=== PATIENT | male | born 1950 | race Caucasian/White ===

== ENCOUNTER 2017-05-08 01:04 | Inpatient (IN) | payer MEDICARE ==
[~2017-05-08] VITALS: Ht 170.2 cm; Wt 72.0 kg
[2017-05-08] VITALS (11 sets, daily range): BP systolic 110–159; BP diastolic 61–95; PULSE 78–100; RESP 16–24; TEMP 97.4–99.9; O2SAT 93–99
[~2017-05-08 01:04] MED LIST: CORTIS10A AU; CYCL-36 PO; KETO10 PO; PERC10TA26 PO; TYLE3 PO
[2017-05-08] MEDS ORDERED: metroNIDAZOLE 500 MG INJ 100 ML IV ONE (01:15)
[2017-05-08] MEDS ORDERED: MORPHINE SULFATE 4 MG/ML INJ IV ONE (01:15)
[2017-05-08] MEDS ORDERED: SODIUM CHLORIDE 0.9% FLUSH 10 ML FLUSH IV FLUSH PRN ×2 (01:15→03:15)
[2017-05-08] MEDS ORDERED: cefTRIAXone INJ 2,000 MG in SODIUM CHLORIDE 0.9% INJ 100 ML IV ONE (01:15)
[2017-05-08] MEDS ORDERED: ONDANSETRON HCL 4 MG/2 ML VIAL IV PUSH ONE (01:15)
[2017-05-08] MEDS ORDERED: DIPHTH/TETANUS/ACEL PERTUSSIS (BOOSTER) 0.5 ML VIAL/PFS IM ONE (01:15)
--- NOTE | 2017-05-08 01:30 | PD ---
HPI . Dog bite to R forearm Chief Complaint: Bite or Sting Time Seen by Provider: 01:10 Travel History International Travel<30 days: No Contact w/Intl Traveler<30days: No Traveled to known affect area: No History of Present Illness HPI This patient is a 67 year old male who presents with a dog bite to the right forearm that occurred approximately 12 hours before presentation to [facility]. The patient is a poor historian. The patient said he was trying to break up a dog fight and save his dog when he was bitten by the other dog. The dog was taken by animal control. His family member subsequently called EMS later that evening because the patient fell and hurt the right arm that was previously bitten. The patient denies any fevers or chills but admits to nausea. He said his arm is very painful to touch and has limited mobility. He has taken Oxycodone for the pain. His only other medical problems include chronic back pain for which he takes Oxycodone. He is allergic to penicillin. PFSH Past Medical History Diminished Hearing: No Musculoskeletal: Yes (CHRONIC BACK PAIN) Social History Alcohol Use: No Tobacco Use: Yes (1 PPD) Substance Use: No Allergies-Medications (Allergen,Severity, Reaction): Coded Allergies: penicillin G (Unverified Allergy, Mild, RASH, 05/08/17) Reported Meds & Prescriptions Reported Meds & Active Scripts Active Reported Tamsulosin (Tamsulosin HCl) 0.4 Mg Cap 0.4 Mg PO BID Xanax (Alprazolam) 1 Mg Tab 1 Mg PO Q6H PRN Morphine ER (Morphine Sulfate) 30 Mg Tab 30 Mg PO Q8H PRN Percocet (Oxycodone-Acetaminophen) 10-325 mg Tab 1 Tab PO Q6H PRN Review of Systems Except as stated in HPI: all other systems reviewed are Neg General / Constitutional: No: Fever, Chills Cardiovascular: No: Chest Pain or Discomfort Respiratory: No: Cough, Shortness of Breath Gastrointestinal: Positive: Nausea, No: Vomiting, Diarrhea, Abdominal Pain Skin: Positive Lesions (Puncture wounds to R anterior forearm/hand ) Physical Exam Narrative GENERAL: This patient is a 67 year old male examined at bedside. He is alert and oriented x3 and is in no acute distress. SKIN: Distal right extremity erythema and edema extending from mid forearm to fingertips. Several small puncture wounds on the anterior distal right forearm draining serosanguineous fluid, mild purple bruising around puncture wounds. Several tattoos on anterior chest, forearms. No axillary lymphadenopathy HEAD: Atraumatic. Normocephalic. EYES: Pupils equal and round. ENT: No nasal bleeding or discharge. Mucous membranes pink and moist. NECK: Trachea midline. CARDIOVASCULAR: Regular rate and rhythm. No murmurs or extra beats RESPIRATORY: No accessory muscle use. Clear to auscultation. GASTROINTESTINAL: Abdomen soft, non-tender, nondistended. MUSCULOSKELETAL: No obvious deformities. Limited R finger and wrist ROM, due to swelling and pain. NEUROLOGICAL: Awake and alert. No obvious cranial nerve deficits. Motor grossly within normal limits. Normal speech. PSYCHIATRIC: Appropriate mood and affect; insight and judgment normal. Data Data Last Documented VS Vital Signs Date Time Temp Pulse Resp B/P Pulse Ox O2 Delivery O2 Flow Rate FiO2 05/08/17 02:00 16 05/08/17 01:45 97 126/70 96 Room Air 05/08/17 01:11 99.7 Orders Iv Access Insert/Monitor (05/08/17 01:10) Wound Care (05/08/17 01:10) Complete Blood Count With Diff (05/08/17 01:10) Basic Metabolic Panel (Bmp) (05/08/17 01:10) Prothrombin Time / Inr (Pt) (05/08/17 01:10) Act Partial Throm Time (Ptt) (05/08/17 01:10) Siwk-Xtt-Suaxgf (Booster) Inj (Boostrix (05/08/17 01:15) Sodium Chloride 0.9% Flush (Ns Flush) (05/08/17 01:15) Morphine Inj (Morphine Inj) (05/08/17 01:15) Ondansetron Inj (Zofran Inj) (05/08/17 01:15) Ceftriaxone Inj (Rocephin Inj) (05/08/17 01:15) Metronidazole 500 Mg Inj (Flagyl 500 Mg (05/08/17 01:15) Tetanus/Diphtheria Tox Adult (Tetanus/Di (05/08/17 02:15) Forearm (2vws) (05/08/17 02:03) Hand, Complete (Fmo8yui) (05/08/17 02:03) Consult Hand Surgery (05/08/17 ) Admit Order (Ed Use Only) (05/08/17 03:07) Labs Laboratory Tests Test 05/08/17 01:20 White Blood Count 11.7 TH/MM3 Red Blood Count 4.17 MIL/MM3 Hemoglobin 12.2 GM/DL Hematocrit 36.3 % Mean Corpuscular Volume 87.0 FL Mean Corpuscular Hemoglobin 29.2 PG Mean Corpuscular Hemoglobin 33.6 % Concent Red Cell Distribution Width 14.7 % Platelet Count 220 TH/MM3 Mean Platelet Volume 7.5 FL Neutrophils (%) (Auto) 81.9 % Lymphocytes (%) (Auto) 9.1 % Monocytes (%) (Auto) 5.5 % Eosinophils (%) (Auto) 2.3 % Basophils (%) (Auto) 1.2 % Neutrophils # (Auto) 9.6 TH/MM3 Lymphocytes # (Auto) 1.1 TH/MM3 Monocytes # (Auto) 0.6 TH/MM3 Eosinophils # (Auto) 0.3 TH/MM3 Basophils # (Auto) 0.1 TH/MM3 CBC Comment DIFF FINAL Differential Comment Prothrombin Time 11.6 SEC Prothromb Time International 1.0 RATIO Ratio Activated Partial 27.3 SEC Thromboplast Time Sodium Level 137 MEQ/L Potassium Level 3.8 MEQ/L Chloride Level 107 MEQ/L Carbon Dioxide Level 22.6 MEQ/L Anion Gap 7 MEQ/L Blood Urea Nitrogen 16 MG/DL Creatinine 1.30 MG/DL Estimat Glomerular Filtration 55 ML/MIN Rate Random Glucose 124 MG/DL Calcium Level 8.5 MG/DL MDM Medical Decision Making Medical Screen Exam Complete: Yes Emergency Medical Condition: Yes Differential Diagnosis Cellulitis, osteomyelitis, fracture Narrative Course This is a 67 year old gentleman who presented 12 hours after a dog bite to the right distal forearm and dorsal surface of the hand. He is complaining of pain and swelling. X-ray ordered and Tdap and antibiotic coverage for pasteurella given. He was also given Zofran for nausea and Morphine for pain. CBC & BMP Diagram 05/08/17 01:20 X-rays of the hand and forearm shows some soft tissue swelling as well as some air in the soft tissue on the dorsum of the hand. There is no fracture. There is no foreign body. The x-rays were independently viewed by me. Sepsis Criteria SIRS Criteria (2 or more): Heart rate over 90 Sepsis Criteria (SIRS+source): Infect source susp/known Physician Communication Physician Communication Dr. Eric will admit for IV ABX. Hand surgery will be consulted. Diagnosis Primary Impression: Cellulitis Qualified Code: L03.113 - Cellulitis of right upper extremity Additional Impression: Dog bite of hand Qualified Code: S61.451A - Dog bite of right hand, initial encounter Admitting Information Admitting Physician Requests: Admit Condition: Stable Sabrina Davidson MD May 08, 2017 01:30
[2017-05-08 01:37] LABS: AUTOMATED NEUTROPHIL # 9.6 TH/MM3 (1.8-7.7); BASOPHIL # 0.1 TH/MM3 (0-0.2); BASOPHIL % 1.2 % (0.0-2.0); EOSINOPHIL # 0.3 TH/MM3 (0-0.4); EOSINOPHIL % 2.3 % (0.0-4.0); HEMATOCRIT 36.3 % (39.0-51.0); HEMO FLAGS DIFF FINAL; LYMPH % 9.1 % (9.0-44.0); LYMPHOCYTE # 1.1 TH/MM3 (1.0-4.8); MEAN CORPUSCULAR HEMOGLOBIN 29.2 PG (27.0-34.0); MEAN CORPUSCULAR HGB CONC 33.6 % (32.0-36.0); MONO % 5.5 % (0.0-8.0); NEUT % 81.9 % (16.0-70.0); PLATELET COUNT 220 TH/MM3 (150-450); RED BLOOD COUNT 4.17 MIL/MM3 (4.50-5.90); RED CELL DISTRIBUTION WIDTH 14.7 % (11.6-17.2); WHITE BLOOD COUNT 11.7 TH/MM3 (4.0-11.0)
[2017-05-08 01:43] LABS: POTASSIUM 3.8 MEQ/L (3.5-5.1)
[2017-05-08 01:46] LABS: BICARBONATE 22.6 MEQ/L (21.0-32.0)
[2017-05-08 01:47] LABS: APTT (PATIENT) 27.3 SEC (24.3-30.1); PROTHROMBIN TIME - PATIENT 11.6 SEC (9.8-11.6)
[2017-05-08] MEDS ORDERED: XANA1TAB2 PO (01:51)
[2017-05-08] MEDS ORDERED: MORP1TAB25 PO (01:51)
[2017-05-08] MEDS ORDERED: PERC10TA27 PO (01:51)
[2017-05-08] MEDS ORDERED: TAMS0.4C4 PO (01:52)
[2017-05-08] MEDS ORDERED: TETANUS/DIPHTHERIA TOXOID ADULT 0.5 ML VIAL IM ONE (02:15)
--- NOTE | 2017-05-08 02:52 | RADRPT ---
EXAM DATE/TIME: 05/08/2017 02:12 [facility] COMPARISON: No previous studies available for comparison. INDICATIONS : Dog bit to posterior surface of right hand today MEDICAL HISTORY : None. SURGICAL HISTORY : None. ENCOUNTER: Initial ACUITY: 1 day PAIN SCORE: 10/10 LOCATION: Right posterior hand FINDINGS: Three view examination of the right hand demonstrates no dislocation, or fracture. Marked soft tiss ue swelling along the dorsum of the hand with a few dots of soft tissue air characteristic of penetra ting trauma. The carpal bones appear intact with scattered, benign appearing osseous cysts. The inte rphalangeal and metacarpophalangeal joints are intact. Bony mineralization is normal. CONCLUSION: 1. Soft tissue swelling along the dorsum of the hand with regional air density characteristic of pene trating trauma. 2. No associated fracture. Navi Castillo MD on May 08, 2017 at 2:48 Board Certified Radiologist. This report was verified electronically.
--- NOTE | 2017-05-08 02:53 | RADRPT ---
EXAM DATE/TIME: 05/08/2017 02:18 [facility] COMPARISON: No previous studies available for comparison. INDICATIONS : Dog bit to posterior surface of right distal forearm today MEDICAL HISTORY : None. SURGICAL HISTORY : None. ENCOUNTER: Initial ACUITY: 1 day PAIN SCORE: 10/10 LOCATION: Right posterior distal forearm FINDINGS: Two view examination of the right forearm demonstrates no evidence of fracture or dislocation. Bony mineralization is normal. The soft tissue structures are intact. CONCLUSION: No fracture. Navi Castillo MD on May 08, 2017 at 2:51 Board Certified Radiologist. This report was verified electronically.
[2017-05-08] MEDS ORDERED: LACTULOSE SYRUP 20 GM/30 ML CUP PO PRN (03:15)
[2017-05-08] MEDS ORDERED: ONDANSETRON HCL 4 MG/2 ML VIAL IVP PRN (03:15)
[2017-05-08] MEDS ORDERED: ACETAMINOPHEN 325 MG TAB PO PRN (03:15)
[2017-05-08] MEDS ORDERED: BISACODYL 10 MG SUPP RECTAL PRN (03:15)
[2017-05-08] MEDS ORDERED: MAGNESIUM HYDROXIDE SUSP 30 ML CUP PO PRN (03:15)
[2017-05-08] MEDS ORDERED: SENNOSIDES 8.6 MG TAB PO PRN (03:15)
[2017-05-08] MEDS: SODIUM CHLOR 0.9% 1000 ML INJ 1,000 ML IV SCH ×3 (04:03→23:41)
[2017-05-08] MEDS: DOXYCYCLINE INJ 100 MG in SODIUM CHLORIDE 0.9% INJ 100 ML IV SCH ×2 (04:04→16:31)
[2017-05-08] MEDS: MORPHINE SULFATE 4 MG/ML INJ IV PRN ×4 (04:13→23:43)
--- NOTE | 2017-05-08 09:01 | HHI.HP ---
[facility] Burton Gar MD Admission Diagnosis celllulitis, right hand. dog bite, right hand Diagnoses: (1) Cellulitis Diagnosis: Principal (2) Dog bite of hand Diagnosis: Principal Chief Complaint: Dog bite Travel History International Travel<30 Days: No Contact w/Intl Traveler <30 Da: No Traveled to Known Affected Are: No History of Present Illness Written by Hudson Eastman, acting as scribe for Dr. Benjamin on 05/08/17 at 08: 48. 67 year-old male with known history of chronic pain who presented to hospital because of a dog bite. Patient states that approximately 11 AM yesterday morning there was a fight between his dog which is a [place]/Tinsley/ Boxer and his sister's dog which is a pit bull/mastiff mix. He tried to break up a fight and he got bit on his right hand and forearm. The patient proceeded through the day and he went and picked up his prescriptions in [place] and then decided to come to the emergency department for evaluation. Patient had evaluation done emergency department it was recommended the patient be admitted for further evaluation management. The patient is allergic to penicillin which he states he breaks out in a rash. Patient was given Rocephin in emergency department. Hand specialist has been consulted for further recommendations. Patient denies any fever, chills, exudate or drainage. Patient is able to move all of his fingers and use his hand, however very painful Review of Systems Musculoskeletal: COMPLAINS OF: Stiffness (right hand) Except as stated in HPI: all other systems reviewed are Neg Past Family Social History Past Medical History Chronic back pain Past Surgical History Right rotator cuff surgery Reported Medications Reported Meds & Active Scripts Active Reported Tamsulosin (Tamsulosin HCl) 0.4 Mg Cap 0.4 Mg PO BID Xanax (Alprazolam) 1 Mg Tab 1 Mg PO Q6H PRN Morphine ER (Morphine Sulfate) 30 Mg Tab 30 Mg PO Q8H PRN Percocet (Oxycodone-Acetaminophen) 10-325 mg Tab 1 Tab PO Q6H PRN Allergies: Coded Allergies: penicillin G (Unverified Allergy, Mild, RASH, 05/08/17) Family History Reviewed is significant for mother in her 80s from unknown cancer, father at age 69 from unknown cancer. Patient denies any family history of heart disease diabetes, seizures, stroke Social History Patient smokes a pack a cigarettes a day since he was 14 years old. Denies any alcohol or illicit drugs Physical Exam Vital Signs Vital Signs Date Time Temp Pulse Resp B/P Pulse Ox O2 Delivery O2 Flow Rate FiO2 05/08/17 08:00 98.1 86 20 159/95 99 05/08/17 07:07 85 18 05/08/17 06:00 84 16 126/72 98 Nasal Cannula 2 05/08/17 05:30 86 16 140/70 97 Nasal Cannula 2 05/08/17 04:30 88 16 110/61 94 Nasal Cannula 2 05/08/17 04:25 88 18 05/08/17 04:20 18 05/08/17 03:30 90 16 117/73 93 Room Air 05/08/17 02:30 92 18 151/77 95 Room Air 05/08/17 02:00 16 05/08/17 01:45 97 18 126/70 96 Room Air 05/08/17 01:18 100 18 05/08/17 01:11 99.7 100 18 136/76 98 Physical Exam GENERAL: Well-developed, well-nourished, in no acute distress. alert and orientated HEENT: Head is normocephalic without any lesions or masses noted. Facial features are symmetric. Eyes: Pupils equal round reactive to light. Extraocular muscles are intact. Conjunctivae were clear. Oropharyngeal: Pharynx without any erythema edema. Tongue is midline without deviation. Buccal mucosa is moist without any masses or lesions NECK: Supple without any masses. Trachea midline no deviation. No JVD, no bruits are appreciated CARDIAC: Regular rhythm, regular rate. S1/S2 are heard. No murmurs gallops or rubs. LUNGS: Clear to auscultation bilaterally. No wheeze, rhonchi or rales. No use of accessory muscles on inspiration or expiration. ABDOMEN: Soft, nontender. Nondistended. Bowel sounds heard in all 4 quadrants. No organomegaly or masses. Negative rebound, negative guarding EXTREMITIES: No edema, pulses are equal bilaterally. No cyanosis or clubbing NEUROLOGY: Mood and affect appear appropriate. Cranial nerves II through XII grossly intact. Muscle strength 5/5 in upper and lower extremities bilaterally. Deep tendon reflexes are 2+ in upper and lower extremities bilaterally. RIGHT HAND: Patient does have multiple puncture dickey noted on the anterior surface of his hand. There is one laceration measuring 1 cm that does have a deep pocket approximately half a centimeter deep. Right anterior forearm just above the wrist shows multiple excoriations and small lacerations without any signs of exudates. There is swelling of the right hand and mild cellulitis noted over the anterior surface of the hand and distal forearm Laboratory Laboratory Tests Test 05/08/17 01:20 White Blood Count 11.7 Red Blood Count 4.17 Hemoglobin 12.2 Hematocrit 36.3 Mean Corpuscular Volume 87.0 Mean Corpuscular Hemoglobin 29.2 Mean Corpuscular Hemoglobin 33.6 Concent Red Cell Distribution Width 14.7 Platelet Count 220 Mean Platelet Volume 7.5 Neutrophils (%) (Auto) 81.9 Lymphocytes (%) (Auto) 9.1 Monocytes (%) (Auto) 5.5 Eosinophils (%) (Auto) 2.3 Basophils (%) (Auto) 1.2 Neutrophils # (Auto) 9.6 Lymphocytes # (Auto) 1.1 Monocytes # (Auto) 0.6 Eosinophils # (Auto) 0.3 Basophils # (Auto) 0.1 CBC Comment DIFF FINAL Differential Comment Prothrombin Time 11.6 Prothromb Time International 1.0 Ratio Activated Partial 27.3 Thromboplast Time Sodium Level 137 Potassium Level 3.8 Chloride Level 107 Carbon Dioxide Level 22.6 Anion Gap 7 Blood Urea Nitrogen 16 Creatinine 1.30 Estimat Glomerular Filtration 55 Rate Random Glucose 124 Calcium Level 8.5 Result Diagram: 05/08/1711905/08/17119 Imaging Last Impressions Radius/Ulna X-Ray 05/08/17202 Signed Impressions: Service Date/Time: Monday, May 08, 2017 02:18 - CONCLUSION: No fracture. Navi Castillo MD Hand X-Ray 05/08/17202 Signed Impressions: Service Date/Time: Monday, May 08, 2017 02:12 - CONCLUSION: 1. Soft tissue swelling along the dorsum of the hand with regional air density characteristic of penetrating trauma. 2. No associated fracture. Navi Castillo MD Assessment and Plan Assessment and Plan Dog bite of the right hand with cellulitis X-ray shows soft tissue swelling at along the dorsal surface of the hand with regional air density characteristics of penetrating trauma Patient given Rocephin in the emergency department. Patient will be started on Cipro and continued on doxycycline Hand specialist has been consulted for further recommendations, discussed with him who recommended continuation of antibiotics to include Cipro, elevation, cultures were taken Continue pain control Chronic pain Home medications will be continued DVT prevention Low risk, early ambulation This note was transcribed by russ [Hudson Eastman]. I, Dr. Guillermo Benjamin personally performed the history, physical exam, and medical decision making; and confirmed the accuracy of the information in the transcribed note. Authenticated by Dr. Guillermo Benjamin on 05/08/17 at 0850. Code Status No code Discussed Condition With Patient, hand specialist Dr. Fernandes Physician Certification 2 Midnight Certification Type: Admission for Inpatient Services Order for Inpatient Services The services are ordered in accordance with Medicare regulations or non- Medicare payer requirements, as applicable. In the case of services not specified as inpatient-only, they are appropriately provided as inpatient services in accordance with the 2-midnight benchmark. Estimated LOS (days): 2 days is the estimated time the patient will need to remain in the hospital, assuming treatment plan goals are met and no additional complications. Post-Hospital Plan: Home Problem Qualifiers (1) Cellulitis: Qualified Code: L03.113 - Cellulitis of right upper extremity (2) Dog bite of hand: Qualified Code: S61.451A - Dog bite of right hand, initial encounter Hudson Eastman May 08, 2017 09:01 Guillermo Benjamin MD May 08, 2017 09:04
--- NOTE | 2017-05-08 09:25 | MB ---
cc: MOLLY URRUTIA III, M.D. DATE OF CONSULTATION: 05/08/2017 HISTORY OF PRESENT ILLNESS The patient is a 67-year-old [id number] male who presented with a dog bite to the right hand and wrist which occurred almost 24 hours ago. He came in late last night to the emergency room in [place]. He stated he was trying to break up a fight between his dog and his sister's dog and the dog bit him. PAST MEDICAL HISTORY Chronic back pain. ALLERGIES PENICILLIN. MEDICATIONS 1. Oxycodone. 2. Morphine ER. 3. Xanax. 4. Tamsulosin. PAST SURGICAL HISTORY Right rotator cuff surgery. SOCIAL HISTORY He smokes one pack per day. FAMILY HISTORY Noncontributory. REVIEW OF SYSTEMS The patient is not complaining of headaches, blurry or double vision. He is not complaining of any coughing, wheezing or shortness of breath. He is not complaining of any chest pain or palpitations. He is not complaining of any nausea, vomiting or abdominal pain. He is not complaining of any spine, neck or back pain. He is not complaining of any burning, frequency or urgency with urination. He is not complaining of any night sweats, fevers or chills. He is not complaining of any skin lesions, rashes or eruptions. IMAGING X-rays of the right hand and forearm were performed in the emergency room. . Right hand soft tissue swelling along the dorsum of the hand with regional air density characteristic of penetrate trauma. No associated fracture. No right forearm fracture. LABORATORY STUDIES White blood cell count of 11.7, hemoglobin 12.2 gm/dl, platelet count 220,000. PHYSICAL EXAMINATION GENERAL: The patient is well-developed, well-nourished, in no apparent distress. VITAL SIGNS: Temperature is not recorded. Heart rate 85, respiratory rate 18, blood pressure 126/72, pulse ox 98% on room air. RIGHT UPPER EXTREMITY: His right hand is lying in his lap, very dependent and wrapped with Kerlix which is removed. There are multiple puncture wounds, the dorsal most of which is draining and this was probed. He has full active range of motion of all his fingers. There is edema on the dorsum of his hand. There is no subcutaneous emphysema. There is no tracking. There is no erythema or edema or tenderness anywhere along the wrist or forearm. Radial pulse is palpable. Capillary refill is less than 2 seconds in all fingertips. There is no epitrochlear or axillary adenopathy. There is an antecubital fossa IV which is promptly removed by his nurse on the floor and placed into his opposite arm. There is no subcutaneous emphysema or tracking. He is neurovascularly intact throughout. All musculotendinous units appear intact. IMPRESSION Dog bite right hand and wrist. PLAN/RECOMMENDATIONS Recommendation is for strong IV antibiotic coverage and strict elevation of his hand along with packing changes as well as wound care. There is no indication for surgical intervention at this point. I discussed this with the patient's nurse and the PA. MD ARIAS Trejo III/JACQUE /8:34 AM /9:08 AM
[2017-05-08] MEDS: metroNIDAZOLE 500 MG INJ 100 ML IV SCH ×2 (10:15→20:59)
[2017-05-08] MEDS: CIPROFLOXACIN 400 MG PREMIX 200 ML IV SCH ×2 (10:15→23:41)
[2017-05-08] MEDS: DOCUSATE SODIUM 50 MG/SENNA 8.6 MG TAB PO SCH ×2 (10:16→20:59)
[2017-05-08] MEDS: SODIUM CHLORIDE 0.9% FLUSH 10 ML FLUSH IV FLUSH SCH ×2 (10:16→20:59)
[2017-05-08] MEDS: NICOTINE 21 MG/24 HR PATCH T-DERMAL SCH (11:51)
[2017-05-08] MEDS: ACETAMINOPHEN/HYDROcodone 325 MG/5 MG TAB PO PRN ×2 (11:54→21:00)
--- NOTE | 2017-05-08 16:26 | HHI.PR ---
Objective Vital Signs Date Time Temp Pulse Resp B/P Pulse Ox O2 Delivery O2 Flow Rate FiO2 05/08/17 16:00 99.9 78 20 126/86 99 05/08/17 12:54 18 05/08/17 12:00 98.4 86 20 155/87 96 05/08/17 10:30 15 05/08/17 08:00 98.1 86 20 159/95 99 05/08/17 07:07 85 18 05/08/17 06:00 84 16 126/72 98 Nasal Cannula 2 05/08/17 05:30 86 16 140/70 97 Nasal Cannula 2 05/08/17 04:30 88 16 110/61 94 Nasal Cannula 2 05/08/17 04:25 88 18 05/08/17 03:30 90 16 117/73 93 Room Air 05/08/17 02:30 92 18 151/77 95 Room Air 05/08/17 02:00 16 05/08/17 01:45 97 18 126/70 96 Room Air 05/08/17 01:18 100 18 05/08/17 01:11 99.7 100 18 136/76 98 I/O 05/07/17 05/07/17 05/07/17 05/08/17 05/08/17 05/08/17 06:59 14:59 22:59 06:59 14:59 22:59 Intake Total 1570 ml Output Total 400 ml Balance -400 ml 1570 ml Intake Oral 1570 ml Output Urine Total 400 ml # Voids 2 Result Diagram: 05/08/17 0120 05/08/17 0120 Objective Remarks right hand erythema better still edematous but only serosanguenous drainage no induration no purulence Assessment and Plan Problem List: (1) Cellulitis Status: Acute Plan: continue abx/elevation/packing changes (2) Dog bite of hand Status: Acute Problem Qualifiers (1) Cellulitis: Qualified Code: L03.113 - Cellulitis of right upper extremity (2) Dog bite of hand: Qualified Code: S61.451A - Dog bite of right hand, initial encounter Rodger Fernandes III, MD May 08, 2017 16:25
[2017-05-09 01:41] VITALS: BP 159/91; PULSE 77; RESP 16; TEMP 97.3; O2SAT 93
[2017-05-09] MEDS: metroNIDAZOLE 500 MG INJ 100 ML IV SCH ×2 (03:00→11:25)
[2017-05-09] MEDS: DOXYCYCLINE INJ 100 MG in SODIUM CHLORIDE 0.9% INJ 100 ML IV SCH (04:00)
[2017-05-09 07:12] LABS: AUTOMATED NEUTROPHIL # 8.6 TH/MM3 (1.8-7.7); BASOPHIL % 0.4 % (0.0-2.0); EOSINOPHIL # 0.2 TH/MM3 (0-0.4); EOSINOPHIL % 2.2 % (0.0-4.0); HEMATOCRIT 39.6 % (39.0-51.0); LYMPH % 10.6 % (9.0-44.0); LYMPHOCYTE # 1.2 TH/MM3 (1.0-4.8); MEAN CELL VOLUME 88.3 FL (80.0-100.0); MEAN CORPUSCULAR HEMOGLOBIN 28.8 PG (27.0-34.0); MEAN CORPUSCULAR HGB CONC 32.6 % (32.0-36.0); MONO % 8.1 % (0.0-8.0); NEUT % 78.7 % (16.0-70.0); PLATELET COUNT 205 TH/MM3 (150-450); RED BLOOD COUNT 4.48 MIL/MM3 (4.50-5.90); RED CELL DISTRIBUTION WIDTH 14.7 % (11.6-17.2); WHITE BLOOD COUNT 10.9 TH/MM3 (4.0-11.0)
[2017-05-09 07:15] LABS: HEMO FLAGS DIFF FINAL
[2017-05-09 07:23] LABS: CHLORIDE 109 MEQ/L (98-107); POTASSIUM 3.7 MEQ/L (3.5-5.1); SODIUM (NA) 141 MEQ/L (136-145)
[2017-05-09 07:32] LABS: ANION GAP 7 MEQ/L (5-15); BICARBONATE 25.4 MEQ/L (21.0-32.0)
[2017-05-09 07:33] LABS: BLOOD UREA NITROGEN 12 MG/DL (7-18)
[2017-05-09 07:35] LABS: ALT (GPT) 10 U/L (12-78)
[2017-05-09 07:36] LABS: AST (GOT) 7 U/L (15-37); GLOMERULAR FILTRATION RATE 93 ML/MIN (>89)
[2017-05-09 07:37] LABS: TOTAL BILIRUBIN ADULT 0.6 MG/DL (0.2-1.0)
[2017-05-09 07:38] LABS: ALKALINE PHOSPHATASE 61 U/L (45-117)
[2017-05-09 08:21] VITALS: BP 144/82; PULSE 80; RESP 19; TEMP 99; O2SAT 94
[2017-05-09] MEDS: MORPHINE SULFATE 4 MG/ML INJ IV PRN (08:36)
[2017-05-09] MEDS: NICOTINE 21 MG/24 HR PATCH T-DERMAL SCH (08:37)
[2017-05-09] MEDS: DOCUSATE SODIUM 50 MG/SENNA 8.6 MG TAB PO SCH (08:37)
[2017-05-09] MEDS: CIPROFLOXACIN 400 MG PREMIX 200 ML IV SCH (08:38)
[2017-05-09] MEDS: SODIUM CHLORIDE 0.9% FLUSH 10 ML FLUSH IV FLUSH SCH (08:38)
[2017-05-09 08:41] VITALS: RESP 18
[2017-05-09] MEDS ORDERED: REMOVE OLD PATCH T-DERMAL SCH (09:00)
[2017-05-09] MEDS: SODIUM CHLOR 0.9% 1000 ML INJ 1,000 ML IV SCH (09:04)
--- NOTE | 2017-05-09 10:59 | HHI.PR ---
Subjective Remarks The patient states that he still has right hand pain however it is 3 out of 10 in improved since yesterday and he also feels that the swelling has improved. The patch was changed this morning. The greatest amount of pain occurs with packing of the wound. The patient denies fever or chills. He does complain of not sleeping well and requests a sleeping aid. Objective Vitals Vital Signs Date Time Temp Pulse Resp B/P Pulse Ox O2 Delivery O2 Flow Rate FiO2 05/09/17 08:41 18 05/09/17 08:21 99.0 80 19 144/82 94 05/09/17 04:52 05/09/17 01:41 97.3 77 16 159/91 93 05/08/17 21:28 97.4 89 24 138/94 95 05/08/17 16:00 99.9 78 20 126/86 99 05/08/17 12:54 18 05/08/17 12:00 98.4 86 20 155/87 96 I/O 05/08/17 05/08/17 05/08/17 05/09/17 05/09/17 05/09/17 07:00 15:00 23:00 07:00 15:00 23:00 Intake Total 1570 ml 341 ml Output Total 400 ml 1700 ml Balance -400 ml 1570 ml 341 ml -1700 ml Intake Oral 1570 ml IV Total 341 ml Output Urine Total 400 ml 1700 ml # Voids 2 Result Diagram: 05/09/1762105/09/17621 Objective Remarks GENERAL: Well-nourished, well-developed very pleasant lean male patient. SKIN: Warm and dry. HEAD: Normocephalic. EYES: No scleral icterus. No injection or drainage. NECK: Supple, trachea midline. No JVD or lymphadenopathy. CARDIOVASCULAR: Regular rate and rhythm without murmurs, gallops, or rubs. RESPIRATORY: Breath sounds equal bilaterally. No accessory muscle use. GASTROINTESTINAL: Abdomen soft, non-tender, nondistended. EXTREMITIES: The right hand and wrist is bandaged, he has some swelling of the left hand, he is able to move all fingers. Bandage is not removed as it was just changed this morning. NEUROLOGICAL: Awake, alert, and oriented x 3. Non-focal. A/P Problem List: (1) Cellulitis ICD Code: L03.90 Status: Acute (2) Dog bite of hand ICD Code: S61.459A Status: Acute Assessment and Plan Dog bite of the right hand with cellulitis X-ray shows soft tissue swelling at along the dorsal surface of the hand with regional air density characteristics of penetrating trauma -Status post I&D in the emergency department, hand surgery Dr. Fernandes following - continue bandage changes, elevation, antibiotics Continue Cipro and continued on doxycycline Gram stain showing gram-negative rods, will follow culture results Continue pain control Chronic pain Home medications continued DVT prevention Low risk, early ambulation Problem Qualifiers (1) Cellulitis: Qualified Code: L03.113 - Cellulitis of right upper extremity (2) Dog bite of hand: Qualified Code: S61.451A - Dog bite of right hand, initial encounter Jaaj Pichardo MD May 09, 2017 10:59
[2017-05-09] MEDS: ACETAMINOPHEN/HYDROcodone 325 MG/5 MG TAB PO PRN (11:35)
[2017-05-09] MEDS ORDERED: LACTCHW3 CHEW (11:39)
[2017-05-09] MEDS ORDERED: DOXY100C PO (11:39)
[2017-05-09] MEDS ORDERED: CIPR-9 PO (11:39)
== END 2017-05-09 12:55 | disposition home or self-care (01) | DRG 603 ==
LOC: PHED 01:04 → PHEDA 03:08 → PH3B 07:34
PROVIDERS: ADMIT Family Medicine; ATTEND Family Medicine
DX: L03.113 Cellulitis of right upper limb (principal); F17.210 Nicotine dependence, cigarettes, uncomplicated; G89.29 Other chronic pain; S61.451A Open bite of right hand, initial encounter; W54.0XXA Bitten by dog, initial encounter; G47.00 Insomnia, unspecified
CPT/HCPCS: 73090; 73130; 80048; 80053; 85025; 85610; 85730; 86403; 87070; 87205; 90471; 90714; 96365; 96367; 96375; J0696; J0744; J2270; J2405; J7030

== ENCOUNTER 2018-02-01 20:58 | Inpatient (IN) | payer MEDICARE ==
[~2018-02-01] VITALS: Ht 170.2 cm; Wt 72.9 kg
[~2018-02-01 20:58] MED LIST changes: +CIPR-9 PO; -CORTIS10A AU; -CYCL-36 PO; +DOXY100C PO; -KETO10 PO; +LACTCHW3 CHEW; +MORP1TAB25 PO; -PERC10TA26 PO; +PERC10TA27 PO; +TAMS0.4C4 PO; -TYLE3 PO; +XANA1TAB2 PO
[2018-02-01 21:00] VITALS: BP 139/79; PULSE 78; RESP 14; TEMP 98.9; O2SAT 98
[2018-02-01] MEDS ORDERED: XANA1TAB2 PO (21:11)
--- NOTE | 2018-02-01 21:28 | PD ---
HPI Chief Complaint: Laceration/Skin Injury Time Seen by Provider: 21:17 Travel History International Travel<30 days: No Contact w/Intl Traveler<30days: No Traveled to known affect area: No History of Present Illness HPI 68-year-old male complaining of pain swelling and discharge on the left foot. Patient states that symptoms started several days ago. Patient denies any injury to left foot. Patient states that he is redness swelling and no discharge is worse today. Patient is not a diabetic. Patient denies any fever chills. Patient son Percocet and morphine for chronic pain. Patient states that he is up-to-date with TD booster. Patient states the pain and burning pain sharp pain localized to the distal aspect of the left foot. Patient denies any pain radiation. On a scale of 1-10 the pain is an 8. PFSH Past Medical History Diminished Hearing: No Genitourinary: Yes (DIFFICULTY URINATING) Musculoskeletal: Yes (CHRONIC BACK/LEG PAIN) Influenza Vaccination: No Social History Alcohol Use: No (DENIES) Tobacco Use: Yes (1/2 PPD) Substance Use: No Allergies-Medications (Allergen,Severity, Reaction): Coded Allergies: penicillin G (Unverified Allergy, Mild, RASH, 05/08/17) Reported Meds & Prescriptions Reported Meds & Active Scripts Active Reported Xanax (Alprazolam) 1 Mg Tab 1 Mg PO Q8H Tamsulosin (Tamsulosin HCl) 0.4 Mg Cap 0.4 Mg PO BID Morphine ER (Morphine Sulfate) 30 Mg Tab 30 Mg PO Q8H PRN Percocet (Oxycodone-Acetaminophen) 10-325 mg Tab 1 Tab PO Q6H PRN Review of Systems General / Constitutional: No: Fever Eyes: No: Visual changes HENT: No: Headaches Cardiovascular: No: Chest Pain or Discomfort Respiratory: No: Shortness of Breath Gastrointestinal: No: Abdominal Pain Genitourinary: No: Dysuria Musculoskeletal: Positive: Pain Skin: No Rash Neurologic: No: Weakness Psychiatric: No: Depression Endocrine: No: Polydipsia Hematologic/Lymphatic: No: Easy Bruising Physical Exam Narrative GENERAL: Well-nourished, well-developed patient. SKIN: Focused skin assessment warm/dry. HEAD: Normocephalic. EYES: No scleral icterus. No injection or drainage. NECK: Supple, trachea midline. No JVD or lymphadenopathy. CARDIOVASCULAR: Regular rate and rhythm without murmurs, gallops, or rubs. RESPIRATORY: Breath sounds equal bilaterally. No accessory muscle use. GASTROINTESTINAL: Abdomen soft, non-tender, nondistended. MUSCULOSKELETAL: No cyanosis, or edema. BACK: Nontender without obvious deformity. No CVA tenderness. Patient has open wound on the plantar aspect of the left second toe with serosanguineous discharge. Patient has redness swelling tenderness distal aspect of the left foot with extent into the midfoot area. Data Data Last Documented VS Vital Signs Date Time Temp Pulse Resp B/P (MAP) Pulse Ox O2 Delivery O2 Flow Rate FiO2 02/01/18 22:10 14 97 Room Air 02/01/18 21:30 76 123/78 (93) 02/01/18 21:00 98.9 Orders Orders Complete Blood Count With Diff (02/01/18 21:17) Comprehensive Metabolic Panel (02/01/18 21:17) Prothrombin Time / Inr (Pt) (02/01/18 21:17) Act Partial Throm Time (Ptt) (02/01/18 21:17) Blood Culture (02/01/18 21:17) Urinalysis - C+S If Indicated (02/01/18 21:17) Wound Culture And Gram Stain (02/01/18 21:17) Chest, Single Ap (02/01/18 21:17) Iv Access Insert/Monitor (02/01/18 21:17) Ecg Monitoring (02/01/18 21:17) Oximetry (02/01/18 21:17) Foot, Complete ([id number]) (02/01/18 21:17) Sodium Chlor 0.9% 1000 Ml Inj (Ns 1000 M (02/01/18 21:30) Vancomycin Inj (Vancomycin Inj) (02/01/18 21:30) Labs Laboratory Tests Test 02/01/18 21:20 White Blood Count 7.4 TH/MM3 Red Blood Count 4.35 MIL/MM3 Hemoglobin 12.7 GM/DL Hematocrit 38.6 % Mean Corpuscular Volume 88.7 FL Mean Corpuscular Hemoglobin 29.1 PG Mean Corpuscular Hemoglobin Concent 32.8 % Red Cell Distribution Width 14.8 % Platelet Count 361 TH/MM3 Mean Platelet Volume 7.7 FL Neutrophils (%) (Auto) 80.7 % Lymphocytes (%) (Auto) 11.4 % Monocytes (%) (Auto) 5.8 % Eosinophils (%) (Auto) 1.6 % Basophils (%) (Auto) 0.5 % Neutrophils # (Auto) 6.1 TH/MM3 Lymphocytes # (Auto) 0.8 TH/MM3 Monocytes # (Auto) 0.4 TH/MM3 Eosinophils # (Auto) 0.1 TH/MM3 Basophils # (Auto) 0.0 TH/MM3 CBC Comment DIFF FINAL Differential Comment Prothrombin Time 11.4 SEC Prothromb Time International Ratio 1.1 RATIO Activated Partial Thromboplast Time 26.5 SEC Blood Urea Nitrogen 11 MG/DL Creatinine 0.72 MG/DL Random Glucose 112 MG/DL Total Protein 8.0 GM/DL Albumin 3.2 GM/DL Calcium Level 9.1 MG/DL Alkaline Phosphatase 82 U/L Aspartate Amino Transf (AST/SGOT) 9 U/L Alanine Aminotransferase (ALT/SGPT) 13 U/L Total Bilirubin 0.4 MG/DL Sodium Level 140 MEQ/L Potassium Level 3.7 MEQ/L Chloride Level 105 MEQ/L Carbon Dioxide Level 26.8 MEQ/L Anion Gap 8 MEQ/L Estimat Glomerular Filtration Rate 108 ML/MIN MDM Medical Decision Making Medical Screen Exam Complete: Yes Emergency Medical Condition: Yes Interpretation(s) Last Impressions Foot X-Ray 02/01/182116 Signed Impressions: Service Date/Time: Thursday, February 01, 2018 21:40 - CONCLUSION: No acute bony findings Martínez Doe MD Chest X-Ray 02/01/182116 Signed Impressions: Service Date/Time: Thursday, February 01, 2018 21:40 - CONCLUSION: No acute disease. Martínez Doe MD 23:16 PM. CBC WBC 7.4. Hemoglobin 12.7 hematocrit 30.6. 80 neutrophil. CMP within normal limits. Differential Diagnosis Differential diagnosis including cellulitis, osteomyelitis. Narrative Course 68-year-old male with infected wound left second toe and redness swelling tenderness distal aspect the left foot. Normal saline solution 100 cc an hour. Vancomycin 1 g IV. Diagnosis Primary Impression: Cellulitis of left foot Admitting Information Admitting Physician Requests: Admit Rafael Koch MD February 01, 2018 21:28
[2018-02-01 21:30] VITALS: BP 123/78; PULSE 76; RESP 14; O2SAT 97
[2018-02-01] MEDS ORDERED: VANCOMYCIN INJ 1,000 MG in SODIUM CHLOR 0.9% 250 ML INJ 250 ML IV ONE (21:30)
[2018-02-01 21:53] LABS: AUTOMATED NEUTROPHIL # 6.1 TH/MM3 (1.8-7.7); BASOPHIL % 0.5 % (0.0-2.0); EOSINOPHIL # 0.1 TH/MM3 (0-0.4); EOSINOPHIL % 1.6 % (0.0-4.0); HEMATOCRIT 38.6 % (39.0-51.0); HEMOGLOBIN 12.7 GM/DL (13.0-17.0); LYMPH % 11.4 % (9.0-44.0); LYMPHOCYTE # 0.8 TH/MM3 (1.0-4.8); MEAN CELL VOLUME 88.7 FL (80.0-100.0); MEAN CORPUSCULAR HEMOGLOBIN 29.1 PG (27.0-34.0); MEAN CORPUSCULAR HGB CONC 32.8 % (32.0-36.0); MEAN PLATELET VOLUME 7.7 FL (7.0-11.0); MONO % 5.8 % (0.0-8.0); MONOCYTE # 0.4 TH/MM3 (0-0.9); NEUT % 80.7 % (16.0-70.0); PLATELET COUNT 361 TH/MM3 (150-450); RED BLOOD COUNT 4.35 MIL/MM3 (4.50-5.90); RED CELL DISTRIBUTION WIDTH 14.8 % (11.6-17.2); WHITE BLOOD COUNT 7.4 TH/MM3 (4.0-11.0)
[2018-02-01] MEDS: SODIUM CHLOR 0.9% 1000 ML INJ 1,000 ML IV SCH (21:55)
[2018-02-01 22:02] LABS: CHLORIDE 105 MEQ/L (98-107); SODIUM (NA) 140 MEQ/L (136-145)
[2018-02-01 22:05] LABS: ALBUMIN 3.2 GM/DL (3.4-5.0); BICARBONATE 26.8 MEQ/L (21.0-32.0); BLOOD UREA NITROGEN 11 MG/DL (7-18); CALCIUM 9.1 MG/DL (8.5-10.1); GLUCOSE,RANDOM 112 MG/DL (74-106)
[2018-02-01 22:07] LABS: INTERNATIONAL NORMALIZED RATIO 1.1 RATIO; PROTHROMBIN TIME - PATIENT 11.4 SEC (9.8-11.6)
[2018-02-01 22:08] LABS: ALT (GPT) 13 U/L (12-78); AST (GOT) 9 U/L (15-37); CREATININE 0.72 MG/DL (0.60-1.30); GLOMERULAR FILTRATION RATE 108 ML/MIN (>89)
[2018-02-01 22:10] VITALS: RESP 14; O2SAT 97
[2018-02-01 22:10] LABS: TOTAL BILIRUBIN ADULT 0.4 MG/DL (0.2-1.0)
[2018-02-01 22:11] LABS: ALKALINE PHOSPHATASE 82 U/L (45-117)
--- NOTE | 2018-02-01 22:13 | RADRPT ---
EXAM DATE/TIME: 02/01/2018 21:40 [facility] COMPARISON: No previous studies available for comparison. INDICATIONS : Shortness of breath. MEDICAL HISTORY : Diabetic. SURGICAL HISTORY : None. ENCOUNTER: Initial ACUITY: 1 day PAIN SCORE: 0/10 LOCATION: Bilateral chest FINDINGS: A single view of the chest demonstrates the lungs to be symmetrically aerated without evidence of mas s, infiltrate or effusion. The cardiomediastinal contours are unremarkable. Osseous structures are intact. CONCLUSION: No acute disease. Martínez Doe MD on February 01, 2018 at 22:10 Board Certified Radiologist. This report was verified electronically.
--- NOTE | 2018-02-01 22:25 | RADRPT ---
EXAM DATE/TIME: 02/01/2018 21:40 [facility] COMPARISON: No previous studies available for comparison. INDICATIONS : Open wound on the plantar aspect of the left second toe. No known trauma. MEDICAL HISTORY : Diabetic. SURGICAL HISTORY : None. ENCOUNTER: Initial ACUITY: 3 days PAIN SCORE: 5/10 LOCATION: Left foot. FINDINGS: There is arthritic change most notably in the first MTP joint. No evidence of fracture, dislocation o r bony destruction. Mild soft tissue swelling involving the second toe. CONCLUSION: No acute bony findings Martínez Doe MD on February 01, 2018 at 22:21 Board Certified Radiologist. This report was verified electronically.
[2018-02-01 23:00] VITALS: BP 119/73; PULSE 70; RESP 14; O2SAT 97
[2018-02-01] MEDS ORDERED: Vancomycin Consult Pharmacy 1 EA OTHER SCH (23:15)
[2018-02-01] MEDS ORDERED: MAGNESIUM HYDROXIDE SUSP 30 ML CUP PO PRN (23:15)
[2018-02-01] MEDS ORDERED: BISACODYL 10 MG SUPP RECTAL PRN (23:15)
[2018-02-01] MEDS ORDERED: SODIUM CHLORIDE 0.9% FLUSH 10 ML FLUSH IV FLUSH PRN (23:15)
[2018-02-01] MEDS ORDERED: NALOXONE HCL 0.4 MG/ML AMP IV PUSH PRN (23:15)
[2018-02-01] MEDS ORDERED: ACETAMINOPHEN 325 MG TAB PO PRN (23:15)
[2018-02-01] MEDS ORDERED: ONDANSETRON HCL 4 MG/2 ML VIAL IVP PRN (23:15)
[2018-02-01] MEDS ORDERED: GLUCAGON 1 MG/ML VIAL OTHER PRN (23:15)
[2018-02-01] MEDS ORDERED: SENNOSIDES 8.6 MG TAB PO PRN (23:15)
[2018-02-01] MEDS ORDERED: DEXTROSE 50% IN WATER 50 ML VIAL(D50) IV PUSH PRN (23:15)
[2018-02-01] MEDS ORDERED: LACTULOSE SYRUP 20 GM/30 ML CUP PO PRN (23:15)
[2018-02-02] VITALS (7 sets, daily range): BP systolic 118–144; BP diastolic 59–76; PULSE 66–80; RESP 14–18; TEMP 96.1–100.2; O2SAT 95–97
[2018-02-02 02:36] LABS: BILIRUBIN, URINE NEG (NEG); BLOOD, URINE MOD (NEG); GLUCOSE,URINE NEG (NEG); KETONE, URINE 15 mg/dL (NEG); NITRITE,URINE NEG (NEG); URINE COLOR YELLOW (YELLW/STRAW); URINE LEUKOCYTE ESTERASE MOD (NEG)
[2018-02-02] MEDS ORDERED: HYDROmorphone HCL PF 1 MG/ML VIAL IV PUSH ONE (02:45)
[2018-02-02 02:55] LABS: MUCUS URINE FEW /lpf (OCC)
[2018-02-02 02:56] LABS: BACTERIA, URINE MOD /hpf; RBC, URINE 0-3 /hpf (0-3); SQUAMOUS EPITHELIAL CELL URINE 0-5 /hpf (0-5)
[2018-02-02] MEDS ORDERED: HYDROmorphone HCL PF 0.5 MG/0.5 ML SYRINGE IV PUSH ONE (03:00)
[2018-02-02] MEDS: SODIUM CHLOR 0.9% 1000 ML INJ 1,000 ML IV SCH (06:07)
[2018-02-02 06:50] LABS: AUTOMATED NEUTROPHIL # 4.6 TH/MM3 (1.8-7.7); BASOPHIL % 0.4 % (0.0-2.0); CALCIUM 8.5 MG/DL (8.5-10.1); EOSINOPHIL # 0.3 TH/MM3 (0-0.4); EOSINOPHIL % 4.5 % (0.0-4.0); HEMATOCRIT 32.8 % (39.0-51.0); HEMOGLOBIN 10.8 GM/DL (13.0-17.0); LYMPH % 19.7 % (9.0-44.0); LYMPHOCYTE # 1.4 TH/MM3 (1.0-4.8); MEAN CORPUSCULAR HEMOGLOBIN 29.3 PG (27.0-34.0); MEAN CORPUSCULAR HGB CONC 32.9 % (32.0-36.0); MEAN PLATELET VOLUME 7.5 FL (7.0-11.0); MONO % 9.1 % (0.0-8.0); MONOCYTE # 0.6 TH/MM3 (0-0.9); NEUT % 66.3 % (16.0-70.0); PLATELET COUNT 274 TH/MM3 (150-450); RED BLOOD COUNT 3.69 MIL/MM3 (4.50-5.90); RED CELL DISTRIBUTION WIDTH 14.1 % (11.6-17.2); WHITE BLOOD COUNT 6.9 TH/MM3 (4.0-11.0)
[2018-02-02 06:51] LABS: BICARBONATE 29.2 MEQ/L (21.0-32.0)
[2018-02-02 06:54] LABS: CREATININE 0.72 MG/DL (0.60-1.30)
[2018-02-02] MEDS ORDERED: INSULIN ASPART SUPPLEMENTAL SCALE SQ SCH (08:00)
[2018-02-02] MEDS: VANCOMYCIN INJ 1,000 MG in SODIUM CHLOR 0.9% 250 ML INJ 250 ML IV SCH ×2 (08:40→21:36)
[2018-02-02] MEDS: SODIUM CHLORIDE 0.9% FLUSH 10 ML FLUSH IV FLUSH SCH ×2 (08:40→21:36)
[2018-02-02] MEDS: DOCUSATE SODIUM 50 MG/SENNA 8.6 MG TAB PO SCH ×2 (08:41→21:35)
[2018-02-02] MEDS ORDERED: oxyCODONE/ACETAMINOPHEN 7.5 MG/325 MG TAB PO ONE (09:30)
[2018-02-02] MEDS ORDERED: oxyCODONE/ACETAMINOPHEN 7.5 MG/325 MG TAB PO PRN (09:30)
[2018-02-02] MEDS: oxyCODONE/ACETAMINOPHEN 7.5 MG/325 MG TAB PO PRN ×2 (09:58→17:45)
[2018-02-02] MEDS: BACITRACIN TOP OINT 15 GM TUBE TOPICAL SCH (11:00)
--- NOTE | 2018-02-02 11:46 | HHI.HP ---
[facility] Burton Gar MD Admission Diagnosis Left foot cellulitis Diagnoses: Chief Complaint: Left foot pain Travel History International Travel<30 Days: No Contact w/Intl Traveler <30 Da: No Traveled to Known Affected Are: No History of Present Illness Patient is a 68-year-old gentleman with minimal past medical history who reports 6 days discomfort and pain to the left foot. He notes there is redness and swelling on the second and third toe interdigital space and difficulty with putting pressure on the foot. Pain is 10 out of 10 despite his home regimen of morphine and Percocet which he takes for back pain. Pain was improved with IV Dilaudid. Patient has not had any fevers or chills. Patient did not have any previous antibiotics. The foot is quite boggy and swelling has been severe although improved with elevation overnight. X-rays were completed and there does not appear to be any foreign body. Patient reports no previous surgical treatment of the foot and ankle. Patient been admitted for IV antibiotics and for further evaluation and treatment Review of Systems Constitutional: DENIES: Diaphoretic episodes, Fatigue, Fever, Weight gain, Weight loss, Chills, Dizziness, Change in appetite, Night Sweats Endocrine: DENIES: Heat/cold intolerance, Polydipsia, Polyuria, Polyphagia Eyes: DENIES: Blurred vision, Diplopia, Eye inflammation, Eye pain, Vision loss , Photosensitivity, Double Vision Ears, nose, mouth, throat: DENIES: Tinnitus, Hearing loss, Vertigo, Nasal discharge, Oral lesions, Throat pain, Hoarseness, Ear Pain, Running Nose, Epistaxis, Sinus Pain, Toothache, Odynophagia Respiratory: DENIES: Apneas, Cough, Snoring, Wheezing, Hemoptysis, Sputum production, Shortness of breath Cardiovascular: DENIES: Chest pain, Palpitations, Syncope, Dyspnea on Exertion , PND, Lower Extremity Edema, Orthopnea, Claudication Gastrointestinal: DENIES: Abdominal pain, Black stools, Bloody stools, Constipation, Diarrhea, Nausea, Vomiting, Difficulty Swallowing, Anorexia Genitourinary: DENIES: Sexual dysfunction, Urinary frequency, Urinary incontinence, Urgency, Hematuria, Dysuria, Nocturia, Penile Discharge, Testicular Pain, Testicular Swelling Musculoskeletal: COMPLAINS OF: Joint pain, Back pain Integumentary: DENIES: Abnormal pigmentation, Nail changes, Pruritus, Rash Hematologic/lymphatic: DENIES: Bruising, Lymphadenopathy Neurologic: DENIES: Abnormal gait, Headache, Localized weakness, Paresthesias, Seizures, Speech Problems, Tremor, Poor Balance Psychiatric: DENIES: Anxiety, Confusion, Mood changes, Depression, Hallucinations, Agitation, Suicidal Ideation, Homicidal Ideation, Delusions Except as stated in HPI: all other systems reviewed are Neg Past Family Social History Past Medical History Chronic back pain on chronic narcotics Urinary troubles Past Surgical History Denies Reported Medications Reviewed in the EMR, nothing new Allergies: Coded Allergies: penicillin G (Unverified Allergy, Mild, RASH, 05/08/17) Active Ordered Medications Reviewed in the EMR Family History Mother and father both from malignancies (no further details) Social History Lives with his family, denies alcohol currently, smokes a half a pack a day Physical Exam Vital Signs Vital Signs Date Time Temp Pulse Resp B/P (MAP) Pulse Ox O2 Delivery O2 Flow Rate FiO2 02/02/18 10:58 17 02/02/18 09:37 98.5 80 18 119/59 (79) 95 02/02/18 00:40 96.1 69 18 137/70 (92) 96 02/02/18 00:10 02/02/18 00:00 68 14 118/68 (85) 96 Room Air 02/01/18 23:00 70 14 119/73 (88) 97 Room Air 02/01/18 22:10 14 97 Room Air 02/01/18 21:30 76 14 123/78 (93) 97 Room Air 02/01/18 21:00 98.9 78 14 139/79 (99) 98 Physical Exam GENERAL: This is a well-nourished, well-developed patient, in no apparent distress. SKIN: Left foot edema improves, erythema improved There is still some sloughing and bogginess up under the second and third toes with denuded skin HEAD: Atraumatic. Normocephalic. No temporal or scalp tenderness. EYES: Pupils equal round and reactive. Extraocular motions intact. No scleral icterus. No injection or drainage. ENT: Nose without bleeding, purulent drainage or septal hematoma. Throat without erythema, tonsillar hypertrophy or exudate. Uvula midline. Airway patent. NECK: Trachea midline. No JVD or lymphadenopathy. Supple, nontender, no meningeal signs. CARDIOVASCULAR: Regular rate and rhythm without murmurs, gallops, or rubs. RESPIRATORY: Clear to auscultation. Breath sounds equal bilaterally. No wheezes , rales, or rhonchi. GASTROINTESTINAL: Abdomen soft, non-tender, nondistended. No hepato-splenomegaly , or palpable masses. No guarding. MUSCULOSKELETAL: Extremities without clubbing, cyanosis, or edema. No joint tenderness, effusion, or edema noted. No calf tenderness. Negative Homans sign bilaterally. NEUROLOGICAL: Awake and alert. Cranial nerves II through XII intact. Motor and sensory grossly within normal limits. Five out of 5 muscle strength in all muscle groups. Normal speech. Laboratory Laboratory Tests Test 02/01/18 21:20 02/02/18 02:19 02/02/18 05:55 White Blood Count 7.4 6.9 Red Blood Count 4.35 3.69 Hemoglobin 12.7 10.8 Hematocrit 38.6 32.8 Mean Corpuscular Volume 88.7 89.0 Mean Corpuscular Hemoglobin 29.1 29.3 Mean Corpuscular Hemoglobin Concent 32.8 32.9 Red Cell Distribution Width 14.8 14.1 Platelet Count 361 274 Mean Platelet Volume 7.7 7.5 Neutrophils (%) (Auto) 80.7 66.3 Lymphocytes (%) (Auto) 11.4 19.7 Monocytes (%) (Auto) 5.8 9.1 Eosinophils (%) (Auto) 1.6 4.5 Basophils (%) (Auto) 0.5 0.4 Neutrophils # (Auto) 6.1 4.6 Lymphocytes # (Auto) 0.8 1.4 Monocytes # (Auto) 0.4 0.6 Eosinophils # (Auto) 0.1 0.3 Basophils # (Auto) 0.0 0.0 CBC Comment DIFF FINAL DIFF FINAL Differential Comment Prothrombin Time 11.4 Prothromb Time International Ratio 1.1 Activated Partial Thromboplast Time 26.5 Blood Urea Nitrogen 11 10 Creatinine 0.72 0.72 Random Glucose 112 113 Total Protein 8.0 Albumin 3.2 Calcium Level 9.1 8.5 Alkaline Phosphatase 82 Aspartate Amino Transf (AST/SGOT) 9 Alanine Aminotransferase (ALT/SGPT) 13 Total Bilirubin 0.4 Sodium Level 140 142 Potassium Level 3.7 3.7 Chloride Level 105 108 Carbon Dioxide Level 26.8 29.2 Anion Gap 8 5 Estimat Glomerular Filtration Rate 108 108 Urine Color YELLOW Urine Turbidity CLOUDY Urine pH 6.0 Urine Specific [place] 1.015 Urine Protein NEG Urine Glucose (UA) NEG Urine Ketones 15 Urine Occult Blood MOD Urine Nitrite NEG Urine Bilirubin NEG Urine Urobilinogen 0.2 Urine Leukocyte Esterase MOD Urine RBC 0-3 Urine WBC 20-24 Urine Squamous Epithelial Cells 0-5 Urine Bacteria MOD Urine Mucus FEW Microscopic Urinalysis Comment CULTURE INDICATED Date/Time Source Procedure Growth Status 02/01/18 21:20 Blood Peripheral Aerobic Blood Culture - Preliminary NO GROWTH IN 1 DAY Resulted 02/01/18 21:20 Blood Peripheral Anaerobic Blood Culture - Preliminary NO GROWTH IN 1 DAY Resulted 02/02/18 02:19 Urine Clean Catch Urine Culture Pending Received 02/01/18 21:35 Wound Foot Gram Stain Pending Received 02/01/18 21:35 Wound Foot Wound Culture Pending Received Result Diagram: 02/02/18 0555 02/02/18 0555 Imaging Last Impressions Foot X-Ray 02/01/182116 Signed Impressions: Service Date/Time: Thursday, February 01, 2018 21:40 - CONCLUSION: No acute bony findings Martínez Doe MD Chest X-Ray 02/01/182116 Signed Impressions: Service Date/Time: Thursday, February 01, 2018 21:40 - CONCLUSION: No acute disease. MD William Kennedyi VTE Risk Assessment Caprini VTE Risk Assessment: Mod/High Risk (score >= 2) Caprini Risk Assessment Model Point Value = 1 Point Value = 2 Point Value = 3 Point Value = 5 Age 41-60 Minor surgery BMI > 25 kg/m2 Swollen legs Varicose veins or History of unexplained or recurrent spontaneous Oral contraceptives or hormone replacement Sepsis (< 1 month) Serious lung disease, including pneumonia (< 1 month) Abnormal pulmonary function Acute myocardial infarction Congestive heart failure (< 1 month) History of inflammatory bowel disease Medical patient at bed rest Age 61-74 Arthroscopic surgery Major open surgery (> 45 min) Laparoscopic surgery (> 45 min) Malignancy Confined to bed (> 72 hours) Immobilizing plaster cast Central venous access Age >= 75 History of VTE Family history of VTE Factor V Leiden Prothrombin [id number] Lupus anticoagulant Anticardiolipin antibodies Elevated serum homocysteine Heparin-induced thrombocytopenia Other congenital or acquired thrombophilia Stroke (< 1 month) Elective arthroplasty Hip, pelvis, or leg fracture Acute spinal cord injury (< 1 month) Prophylaxis Regimen Total Risk Factor Score Risk Level Prophylaxis Regimen 0-1 Low Early ambulation 2 Moderate Order ONE of the following: *Sequential Compression Device (SCD) *Heparin 5000 units SQ BID 3-4 Higher Order ONE of the following medications: *Heparin 5000 units SQ TID *Enoxaparin/Lovenox 40 mg SQ daily (WT < 150 kg, CrCl > 30 mL/min) *Enoxaparin/Lovenox 30 mg SQ daily (WT < 150 kg, CrCl > 10-29 mL/min) *Enoxaparin/Lovenox 30 mg SQ BID (WT < 150 kg, CrCl > 30 mL/min) AND/OR *Sequential Compression Device (SCD) 5 or more Highest Order ONE of the following medications: *Heparin 5000 units SQ TID (Preferred with Epidurals) *Enoxaparin/Lovenox 40 mg SQ daily (WT < 150 kg, CrCl > 30 mL/min) *Enoxaparin/Lovenox 30 mg SQ daily (WT < 150 kg, CrCl > 10-29 mL/min) *Enoxaparin/Lovenox 30 mg SQ BID (WT < 150 kg, CrCl > 30 mL/min) AND *Sequential Compression Device (SCD) Assessment and Plan Problem List: (1) Cellulitis of left foot ICD Code: L03.116 - Cellulitis of left lower limb Status: Acute Plan: Left second and third toe infection with interdigital tinea Continue with IV vancomycin for now and antifungal at discharge Culture sent today after cleaning Podiatry consult pending Monitor clinically (2) Anemia ICD Code: D64.9 - Anemia, unspecified Plan: Etiology unclear but suspicious for neuropathy Check B12 level and iron levels, workup in progress Physician Certification 2 Midnight Certification Type: Admission for Inpatient Services Order for Inpatient Services The services are ordered in accordance with Medicare regulations or non- Medicare payer requirements, as applicable. In the case of services not specified as inpatient-only, they are appropriately provided as inpatient services in accordance with the 2-midnight benchmark. Estimated LOS (days): 3 3 days is the estimated time the patient will need to remain in the hospital, assuming treatment plan goals are met and no additional complications. Post-Hospital Plan: Sosa Kyle MD February 02, 2018 11:46
[2018-02-02 12:30] LABS: C-REACTIVE PROTEIN 9.76 MG/DL (0.00-0.30)
[2018-02-02] MEDS: ALPRAZolam 1 MG TAB PO SCH ×2 (14:07→21:35)
--- NOTE | 2018-02-02 14:40 | MB ---
cc: Lucas Rob DPM DATE: 02/02/2018 REASON FOR CONSULTATION: Left foot abscess, cellulitis involving second digit and forefoot. HISTORY OF PRESENT ILLNESS: This is a pleasant 68-year-old male, in the past 6 days had pain and discomfort of his left foot and he continued to develop significant pain, swelling, and redness of the second and third interdigital space. The patient had significant pain, however, has chronic low back pain. He was taking Percocet. The patient was admitted, IV antibiotics were given. He states he has some improvement. He denies any obvious incident or injury. PAST MEDICAL HISTORY: Chronic back pain, urinary issues nonspecific. PAST SURGICAL HISTORY: None listed. No note of metal in the body. OUTPATIENT MEDICATIONS: Reported outpatient medications are reviewed, pain medications. ALLERGIES: PENICILLIN G - MILD RASH. FAMILY HISTORY: Mother and father of malignancies. No further details. SOCIAL HISTORY: Lives with his family. Denies alcohol. Smokes half pack a day. INPATIENT MEDICATIONS: Reviewed. The patient is receiving vancomycin. PHYSICAL EXAMINATION: VITAL SIGNS: Temperature 100.2, pulse rate 72, respiratory rate 18, blood pressure 136/73, saturating 96% on room air. This is a 70 kilogram, alert and oriented male seen at bedside exhibiting nonlabored respirations. He is verbal, appropriate. He is able to move the upper and lower extremities. Left lower extremity focussed. There is a purulent draining fibrotic abscess ulcer of the plantar aspect of the second digit. There is interdigital maceration and redness that involves the forefoot. There is pain upon pressure to the area. There is no obvious necrosis, but there is rather impressive edema and erythema of near entire second digit. Pedal pulses are palpable. Sensation is intact. To deep pressure appears to be slightly diminished to light touch. LABORATORY DATA: White blood cell 6.9, hemoglobin and hematocrit 10 and 32, platelet count is 274. Sodium 142, potassium 3.7, chloride 108, CO2 29.2, BUN is 10, creatinine 0.72, random glucose is 113. C-reactive protein is 9.7. PT is 11.4, INR 1. Imaging findings: Foot x-ray: Arthritic changes of the first MPJ. No acute bony findings. No mention of gas or osteomyelitis. MRI ordered. Microbial findings: Gram stain ordered. Aerobic blood culture: Negative growth 1 day. ASSESSMENT AND PLAN: Left severe forefoot infection, possible interspace, rule out osteomyelitis deep abscess along the flexor tendon of the second digit. MRI ordered. Continue IV antibiotics. I will advise pending the MRI. The patient may need incision, drainage, debridement versus amputation of the digit. The patient wishes for digit salvage type efforts. I will follow along within the next 24 hours and advise. Thank you for this consultation. OMAR Johnson/TL , 02:03 PM , 02:39 PM
[2018-02-02 15:10] LABS: % SATURATION IRON PROFILE 13.3 % (20-50); IRON (FE) 41 MCG/DL (65-175); TOTAL IRON BINDING CAPACITY 308 MCG/DL (250-450)
[2018-02-02] MEDS ORDERED: GADODIAMIDE PF 287 MG/ML 5 ML VIAL (for RAD MRI) IV PUSH ONE (16:22)
[2018-02-02] MEDS: TAMSULOSIN HCL 0.4 MG CAP PO SCH (21:35)
[2018-02-02] MEDS: MORPHINE SULFATE 30 MG CONTROLLED RELEASE TAB PO PRN (21:37)
--- NOTE | 2018-02-02 23:23 | RADRPT ---
EXAM DATE/TIME: 02/02/2018 15:53 [facility] COMPARISON: FOOT LEFT COMPLETE ([id number]), February 01, 2018, 21:40. INDICATIONS : Abscess. Second and third toe wound by MTPJ. CONTRAST: 14 cc Omniscan (gadodiamide) IV MEDICAL HISTORY : None. SURGICAL HISTORY : None. ENCOUNTER: Initial ACUITY: 1 week PAIN SCORE: 10/10 LOCATION: Left foot, second and third toe. TECHNIQUE: Multiplanar, multisequence MRI examination was performed without contrast and after the intravenous a dministration of gadolinium. FINDINGS: There is prominent edema and cellulitic change involving the second and third toes, mainly in the annamaria ntar aspect of the toes and more significantly involving the second toe than the third. There appears to be an open wound involving the plantar surface of the second toe just proximal to the level of th e proximal interphalangeal joint. There is sinuous diminished contrast-enhancement extending into the deep subcutaneous tissues from this region which is likely devitalized tissue. No definite evidence of drainable abscess. The bony elements are grossly normal in signal without enhancement to suggest s uperimposed osteomyelitis at present. CONCLUSION: Soft tissue wound and infection involving the second and third toes without definite evidence of unde rlying osteomyelitis. Martínez Doe MD on February 02, 2018 at 23:17 Board Certified Radiologist. This report was verified electronically.
[2018-02-03] VITALS: BP 125/68; PULSE 63; RESP 18; TEMP 96.6; O2SAT 95
[2018-02-03] MEDS: oxyCODONE/ACETAMINOPHEN 7.5 MG/325 MG TAB PO PRN ×3 (05:50→18:44)
[2018-02-03] MEDS: ALPRAZolam 1 MG TAB PO SCH ×3 (05:50→21:02)
[2018-02-03 06:18] LABS: AUTOMATED NEUTROPHIL # 4.7 TH/MM3 (1.8-7.7); BASOPHIL % 0.6 % (0.0-2.0); EOSINOPHIL # 0.3 TH/MM3 (0-0.4); EOSINOPHIL % 4.8 % (0.0-4.0); HEMATOCRIT 36.6 % (39.0-51.0); HEMOGLOBIN 11.7 GM/DL (13.0-17.0); LYMPH % 14.9 % (9.0-44.0); MEAN CELL VOLUME 89.4 FL (80.0-100.0); MEAN CORPUSCULAR HEMOGLOBIN 28.6 PG (27.0-34.0); MEAN PLATELET VOLUME 7.3 FL (7.0-11.0); MONO % 8.6 % (0.0-8.0); MONOCYTE # 0.6 TH/MM3 (0-0.9); NEUT % 71.1 % (16.0-70.0); PLATELET COUNT 302 TH/MM3 (150-450); RED BLOOD COUNT 4.09 MIL/MM3 (4.50-5.90); RED CELL DISTRIBUTION WIDTH 14.3 % (11.6-17.2); WHITE BLOOD COUNT 6.6 TH/MM3 (4.0-11.0)
[2018-02-03 08:00] VITALS: BP 131/71; PULSE 65; RESP 19; TEMP 97.7; O2SAT 95
[2018-02-03] MEDS: TAMSULOSIN HCL 0.4 MG CAP PO SCH ×2 (08:27→21:00)
[2018-02-03] MEDS: DOCUSATE SODIUM 50 MG/SENNA 8.6 MG TAB PO SCH ×2 (08:27→21:00)
[2018-02-03] MEDS: VANCOMYCIN INJ 1,000 MG in SODIUM CHLOR 0.9% 250 ML INJ 250 ML IV SCH (08:27)
[2018-02-03] MEDS: BACITRACIN TOP OINT 15 GM TUBE TOPICAL SCH (08:28)
[2018-02-03] MEDS: SODIUM CHLORIDE 0.9% FLUSH 10 ML FLUSH IV FLUSH SCH ×2 (08:28→21:00)
[2018-02-03] MEDS ORDERED: PHARMACY ORDERED LAB ONE (08:45)
[2018-02-03] MEDS ORDERED: PNEUMOCOCCAL POLYVALENT INJ 25 MCG/0.5 ML SYR IM ONE (10:00)
--- NOTE | 2018-02-03 11:29 | HHI.PR ---
Subjective Remarks Patient seen and evaluated today. Doing better. Pain is minimal. Care plan discussed with podiatry yesterday. No evidence of ostial imaging Objective Vitals Vital Signs Date Time Temp Pulse Resp B/P (MAP) Pulse Ox O2 Delivery O2 Flow Rate FiO2 02/03/18 08:00 97.7 65 19 131/71 (91) 95 02/03/18 06:50 20 02/03/18 00:00 96.6 63 18 125/68 (87) 95 02/02/18 20:00 98.2 66 18 144/76 (98) 97 02/02/18 16:52 96.6 78 14 138/72 (94) 97 02/02/18 14:23 98.2 02/02/18 12:50 100.2 72 18 136/73 (94) 96 I/O 02/02/18 02/02/18 02/02/18 02/03/18 02/03/18 02/03/18 07:00 15:00 23:00 07:00 15:00 23:00 Intake Total 698 ml 590 ml 1320 ml 120 ml Output Total 700 ml Balance 698 ml 590 ml 1320 ml -700 ml 120 ml Intake Oral 1320 ml 120 ml IV Total 698 ml 590 ml Output Urine Total 700 ml # Voids 7 # Bowel Movements 0 1 Result Diagram: 02/03/18 0535 02/02/18 0555 Imaging Last Impressions Foot MRI 02/02/18 0000 Signed Impressions: Service Date/Time: Friday, February 02, 2018 15:53 - CONCLUSION: Soft tissue wound and infection involving the second and third toes without definite evidence of underlying osteomyelitis. Martínez Doe MD Foot X-Ray 02/01/182116 Signed Impressions: Service Date/Time: Thursday, February 01, 2018 21:40 - CONCLUSION: No acute bony findings Martínez Doe MD Chest X-Ray 02/01/182116 Signed Impressions: Service Date/Time: Thursday, February 01, 2018 21:40 - CONCLUSION: No acute disease. Martínez Doe MD Objective Remarks Left foot dorsum is inflamed, decreased erythema and edema between the second and third digits GENERAL: This is a well-nourished, well-developed patient, in no apparent distress. CARDIOVASCULAR: Regular rate and rhythm without murmurs, gallops, or rubs. RESPIRATORY: Clear to auscultation. Breath sounds equal bilaterally. No wheezes , rales, or rhonchi. GASTROINTESTINAL: Abdomen soft, non-tender, nondistended. Normal active bowel sounds MUSCULOSKELETAL: Extremities without clubbing, cyanosis, or edema. NEURO: Alert & Oriented x4 to person, place, time, situation. Moves all ext x4 A/P Problem List: (1) Cellulitis of left foot ICD Code: L03.116 - Cellulitis of left lower limb Status: Acute Plan: Left second and third toe infection with interdigital tinea Continue with IV vancomycin for now and antifungal at discharge Cultures pending Podiatry consult appreciated Monitor clinically (2) Anemia ICD Code: D64.9 - Anemia, unspecified Plan: Etiology unclear but suspicious for neuropathy Iron deficiency anemia will need outpatient evaluation Discharge Planning Pending infectious process clinical improvement Sosa Bedoya MD February 03, 2018 11:29
[2018-02-03] MEDS ORDERED: MULTIVITAMINS/IRON/MINERALS CHEWABLE TAB CHEW SCH (11:30)
[2018-02-03 12:00] VITALS: BP 162/78; PULSE 70; RESP 20; TEMP 99; O2SAT 96
--- NOTE | 2018-02-03 12:58 | PD.POD ---
Subjective Pain score: 3 Remarks Some improvement noted of the left foot Past Med/Surg/Social History Social History Smoking Status: Light Tobacco Smoker Objective Vital Signs Vital Signs Date Time Temp Pulse Resp B/P (MAP) Pulse Ox O2 Delivery O2 Flow Rate FiO2 02/03/18 12:39 20 02/03/18 08:00 97.7 65 19 131/71 (91) 95 02/03/18 00:00 96.6 63 18 125/68 (87) 95 02/02/18 20:00 98.2 66 18 144/76 (98) 97 02/02/18 16:52 96.6 78 14 138/72 (94) 97 02/02/18 14:23 98.2 Coded Allergies: penicillin G (Unverified Allergy, Mild, RASH, 05/08/17) Medications and IVs Administered Medications Medications (Trade) Dose Ordered Sig/Trace Route PRN Reason Start Time Stop Time Status Last Admin Dose Admin Sodium Chloride (NS Flush) 2 ml UNSCH PRN IV FLUSH FLUSH AFTER USING IV ACCESS 02/01/18 23:15 02/02/18 03:12 Sodium Chloride (NS Flush) 2 ml BID IV FLUSH 02/02/18 09:00 02/03/18 08:28 Senna/Docusate Sodium (Natalie-Colace) 1 tab BID PO 02/02/18 09:00 02/02/18 21:35 Bacitracin (Baciguent Oint) 1 applic DAILY TOPICAL 02/02/18 10:00 02/03/18 08:28 Oxycodone/ Acetaminophen (Percocet 7.5-325 Mg) 1 tab Q6HR PRN PO pain 02/02/18 09:45 02/03/18 11:39 Alprazolam (Xanax) 1 mg Q8HR PO 02/02/18 14:00 02/03/18 05:50 Morphine Sulfate (Oramorph Sr) 30 mg Q8H PRN PO pain 02/02/18 11:45 02/02/18 21:37 Tamsulosin HCl (Flomax) 0.4 mg BID PO 02/02/18 21:00 02/03/18 08:27 Last 72 hours Impressions Foot MRI 02/02/18 0000 Signed Impressions: Service Date/Time: Friday, February 02, 2018 15:53 - CONCLUSION: Soft tissue wound and infection involving the second and third toes without definite evidence of underlying osteomyelitis. Martínez Doe MD Foot X-Ray 02/01/182116 Signed Impressions: Service Date/Time: Thursday, February 01, 2018 21:40 - CONCLUSION: No acute bony findings Martínez Doe MD Chest X-Ray 02/01/182116 Signed Impressions: Service Date/Time: Thursday, February 01, 2018 21:40 - CONCLUSION: No acute disease. Martínez Doe MD Laboratory Tests Test 02/01/18 21:20 02/02/18 05:55 02/03/18 05:35 White Blood Count 7.4 TH/MM3 6.9 TH/MM3 6.6 TH/MM3 Red Blood Count 4.35 MIL/MM3 3.69 MIL/MM3 4.09 MIL/MM3 Hemoglobin 12.7 GM/DL 10.8 GM/DL 11.7 GM/DL Hematocrit 38.6 % 32.8 % 36.6 % Mean Corpuscular Volume 88.7 FL 89.0 FL 89.4 FL Mean Corpuscular Hemoglobin 29.1 PG 29.3 PG 28.6 PG Mean Corpuscular Hemoglobin Concent 32.8 % 32.9 % 32.0 % Red Cell Distribution Width 14.8 % 14.1 % 14.3 % Platelet Count 361 TH/MM3 274 TH/MM3 302 TH/MM3 Mean Platelet Volume 7.7 FL 7.5 FL 7.3 FL Neutrophils (%) (Auto) 80.7 % 66.3 % 71.1 % Lymphocytes (%) (Auto) 11.4 % 19.7 % 14.9 % Monocytes (%) (Auto) 5.8 % 9.1 % 8.6 % Eosinophils (%) (Auto) 1.6 % 4.5 % 4.8 % Basophils (%) (Auto) 0.5 % 0.4 % 0.6 % Neutrophils # (Auto) 6.1 TH/MM3 4.6 TH/MM3 4.7 TH/MM3 Lymphocytes # (Auto) 0.8 TH/MM3 1.4 TH/MM3 1.0 TH/MM3 Monocytes # (Auto) 0.4 TH/MM3 0.6 TH/MM3 0.6 TH/MM3 Eosinophils # (Auto) 0.1 TH/MM3 0.3 TH/MM3 0.3 TH/MM3 Basophils # (Auto) 0.0 TH/MM3 0.0 TH/MM3 0.0 TH/MM3 CBC Comment DIFF FINAL DIFF FINAL DIFF FINAL Differential Comment Laboratory Tests Test 02/01/18 21:20 02/02/18 05:55 Blood Urea Nitrogen 11 MG/DL 10 MG/DL Creatinine 0.72 MG/DL 0.72 MG/DL Random Glucose 112 MG/DL 113 MG/DL Total Protein 8.0 GM/DL Albumin 3.2 GM/DL Calcium Level 9.1 MG/DL 8.5 MG/DL Alkaline Phosphatase 82 U/L Aspartate Amino Transf (AST/SGOT) 9 U/L Alanine Aminotransferase (ALT/SGPT) 13 U/L Total Bilirubin 0.4 MG/DL Sodium Level 140 MEQ/L 142 MEQ/L Potassium Level 3.7 MEQ/L 3.7 MEQ/L Chloride Level 105 MEQ/L 108 MEQ/L Carbon Dioxide Level 26.8 MEQ/L 29.2 MEQ/L Anion Gap 8 MEQ/L 5 MEQ/L Estimat Glomerular Filtration Rate 108 ML/MIN 108 ML/MIN Iron Level 41 MCG/DL Total Iron Binding Capacity 308 MCG/DL Percent Iron Saturation 13.3 % C-Reactive Protein 9.76 MG/DL Vitamin B12 Level 370 PG/ML Microbiology Date/Time Source Procedure Growth Status 02/01/18 21:20 Blood Peripheral Aerobic Blood Culture - Preliminary NO GROWTH IN 2 DAYS Resulted 02/01/18 21:20 Blood Peripheral Anaerobic Blood Culture - Preliminary NO GROWTH IN 2 DAYS Resulted 02/01/18 21:20 Blood Peripheral Aerobic Blood Culture - Preliminary NO GROWTH IN 2 DAYS Resulted 02/01/18 21:20 Blood Peripheral Anaerobic Blood Culture - Preliminary NO GROWTH IN 2 DAYS Resulted 02/02/18 02:19 Urine Clean Catch Urine Culture Pending Received 02/02/18 11:10 Wound Foot Gram Stain - Final Resulted 02/02/18 11:10 Wound Foot Wound Culture Pending Resulted 02/01/18 21:35 Wound Foot Gram Stain - Final Resulted 02/01/18 21:35 Wound Foot Wound Culture - Preliminary RESULTS PENDING Resulted Exam-Podiatry Remarks Left lower extremity: Plantar left second digit slight improvement decrease drainage redness now isolated only to the dorsum and plantar second digit, fibrotic tissue noted of the plantar digit 2 distinct areas measuring approximately 3 mm 3 mm very painful to touch capillary fill time remains intact to the digit Physical Exam General appearance: comfortable Nutritional status: normal Orientation: alert and oriented x3 Assessment & Plan A/P Left second digit cellulitis abscess. MRI reviewed however clinically the patient has not improved Significantly. Recommended 1-2 days longer of IV antibiotics possible need for operative debridement Thursday. Discussed case with medicine patient agreeable to plan Lucas Rob DPM February 03, 2018 12:58
[2018-02-03] MEDS: MULTIVITAMINS/MINERALS THERAPEUTIC TAB PO SCH (13:11)
[2018-02-03 16:00] VITALS: BP 147/75; PULSE 63; RESP 19; TEMP 98; O2SAT 97
[2018-02-03] MEDS: VANCOMYCIN INJ 1,400 MG in SODIUM CHLORID 0.9% 500 ML INJ 500 ML IV SCH (16:45)
[2018-02-03 20:00] VITALS: BP 96/83; PULSE 64; RESP 20; TEMP 99; O2SAT 96
[2018-02-03] MEDS: MORPHINE SULFATE 30 MG CONTROLLED RELEASE TAB PO PRN (21:08)
[2018-02-04] VITALS: BP 130/76; PULSE 75; RESP 20; TEMP 97.6; O2SAT 97
[2018-02-04] MEDS: oxyCODONE/ACETAMINOPHEN 7.5 MG/325 MG TAB PO PRN ×3 (00:53→18:19)
[2018-02-04] MEDS: MORPHINE SULFATE 30 MG CONTROLLED RELEASE TAB PO PRN ×3 (05:59→23:00)
[2018-02-04] MEDS: VANCOMYCIN INJ 1,400 MG in SODIUM CHLORID 0.9% 500 ML INJ 500 ML IV SCH ×2 (05:59→18:19)
[2018-02-04] MEDS: ALPRAZolam 1 MG TAB PO SCH ×3 (05:59→21:42)
[2018-02-04 08:24] VITALS: BP 148/74; PULSE 68; RESP 17; TEMP 97.9; O2SAT 97
[2018-02-04] MEDS: MULTIVITAMINS/MINERALS THERAPEUTIC TAB PO SCH (10:31)
[2018-02-04] MEDS: SODIUM CHLORIDE 0.9% FLUSH 10 ML FLUSH IV FLUSH SCH ×2 (10:31→21:42)
[2018-02-04] MEDS: BACITRACIN TOP OINT 15 GM TUBE TOPICAL SCH (10:31)
[2018-02-04] MEDS: DOCUSATE SODIUM 50 MG/SENNA 8.6 MG TAB PO SCH ×2 (10:31→21:42)
[2018-02-04] MEDS: TAMSULOSIN HCL 0.4 MG CAP PO SCH ×2 (10:31→21:41)
--- NOTE | 2018-02-04 10:51 | HHI.PR ---
Subjective Remarks Patient seen and via today in follow-up for left foot infection. Appears improved but still with quite of bit of bogginess. Cultures are positive for group B strep and MSSA. Objective Vitals Vital Signs Date Time Temp Pulse Resp B/P (MAP) Pulse Ox O2 Delivery O2 Flow Rate FiO2 02/04/18 08:24 97.9 68 17 148/74 (98) 97 02/04/18 07:11 18 02/04/18 00:00 97.6 75 20 130/76 (94) 97 02/03/18 20:00 99.0 64 20 96/83 (87) 96 02/03/18 16:00 98.0 63 19 147/75 (99) 97 02/03/18 12:39 20 02/03/18 12:00 99.0 70 20 162/78 (106) 96 I/O 02/03/18 02/03/18 02/03/18 02/04/18 02/04/18 02/04/18 07:00 15:00 23:00 07:00 15:00 23:00 Intake Total 120 ml 1400 ml 480 ml Output Total 700 ml 1500 ml Balance -700 ml 120 ml -100 ml 480 ml Intake Oral 120 ml 900 ml 480 ml IV Total 500 ml Output Urine Total 700 ml 1500 ml # Voids 6 # Bowel Movements 1 1 1 Result Diagram: 02/03/18 0535 02/02/18 0555 Objective Remarks Left foot dorsum is improved, decreased erythema and edema between the second and third digits GENERAL: This is a well-nourished, well-developed patient, in no apparent distress. CARDIOVASCULAR: Regular rate and rhythm without murmurs, gallops, or rubs. RESPIRATORY: Clear to auscultation. Breath sounds equal bilaterally. No wheezes , rales, or rhonchi. GASTROINTESTINAL: Abdomen soft, non-tender, nondistended. Normal active bowel sounds MUSCULOSKELETAL: Extremities without clubbing, cyanosis, or edema. NEURO: Alert & Oriented x4 to person, place, time, situation. Moves all ext x4 A/P Problem List: (1) Cellulitis of left foot ICD Code: L03.116 - Cellulitis of left lower limb Status: Acute Plan: Left second and third toe infection with interdigital tinea Continue with IV vancomycin for now and antifungal at discharge, will follow-up sensitivities to determine antibiotic therapy in this patient with penicillin allergy Cultures MSSA and group B strep Podiatry consult appreciated, may need I&D Monitor clinically (2) Anemia ICD Code: D64.9 - Anemia, unspecified Plan: Iron deficiency anemia will need outpatient evaluation Continue p.o. iron, vitamin Discharge Planning Pending infectious process clinical improvement Sosa Bedoya MD February 04, 2018 10:51
[2018-02-04 11:54] VITALS: BP 144/79; PULSE 74; RESP 17; TEMP 99.1; O2SAT 97
[2018-02-04 16:38] VITALS: BP 121/56; PULSE 69; RESP 17; TEMP 97.9; O2SAT 95
--- NOTE | 2018-02-04 19:21 | PD.POD ---
Subjective Podiatric Problems Infection left plantar forefoot Pain score: 3 Past Med/Surg/Social History Social History Smoking Status: Light Tobacco Smoker Objective Vital Signs Vital Signs Date Time Temp Pulse Resp B/P (MAP) Pulse Ox O2 Delivery O2 Flow Rate FiO2 02/04/18 16:38 97.9 69 17 121/56 (77) 95 02/04/18 15:51 18 02/04/18 11:54 99.1 74 17 144/79 (100) 97 02/04/18 11:46 18 02/04/18 08:24 97.9 68 17 148/74 (98) 97 02/04/18 00:00 97.6 75 20 130/76 (94) 97 02/03/18 20:00 99.0 64 20 96/83 (87) 96 Coded Allergies: penicillin G (Unverified Allergy, Mild, RASH, 05/08/17) Exam-Podiatry Remarks Left plantar 2nd toe sulcus extending toward plantar 3rd toe sulcus with possible laceration vs ulcer, possibly down to level of flexor tendon. Boggy fibronecrotic tissue with purulence noted. 2nd digit with mild edema. Minimal erythema today. Mild pain with palpation. Assessment & Plan A/P Infection left plantar forefoot Plan to OR for I&D left foot NPO after midnight Nemesio See DPM February 04, 2018 19:21
[2018-02-04 20:11] VITALS: BP 138/87; PULSE 72; RESP 20; TEMP 95.8; O2SAT 95
[2018-02-05] VITALS: BP 130/71; PULSE 59; RESP 20; TEMP 97.1; O2SAT 93
[2018-02-05] MEDS: oxyCODONE/ACETAMINOPHEN 7.5 MG/325 MG TAB PO PRN ×3 (02:59→21:54)
[2018-02-05] MEDS ORDERED: PHARMACY ORDERED LAB ONE (05:45)
[2018-02-05] MEDS: VANCOMYCIN INJ 1,400 MG in SODIUM CHLORID 0.9% 500 ML INJ 500 ML IV SCH (05:57)
[2018-02-05] MEDS: ALPRAZolam 1 MG TAB PO SCH ×3 (05:57→22:47)
[2018-02-05] MEDS: MORPHINE SULFATE 30 MG CONTROLLED RELEASE TAB PO PRN ×2 (06:44→17:13)
[2018-02-05 08:00] VITALS: BP 132/73; PULSE 52; RESP 20; TEMP 98.1; O2SAT 96
[2018-02-05] MEDS: BACITRACIN TOP OINT 15 GM TUBE TOPICAL SCH (09:00)
[2018-02-05] MEDS: MULTIVITAMINS/MINERALS THERAPEUTIC TAB PO SCH (09:54)
[2018-02-05] MEDS: DOCUSATE SODIUM 50 MG/SENNA 8.6 MG TAB PO SCH ×2 (09:54→21:54)
[2018-02-05] MEDS: SODIUM CHLORIDE 0.9% FLUSH 10 ML FLUSH IV FLUSH SCH ×2 (09:54→21:55)
[2018-02-05] MEDS: TAMSULOSIN HCL 0.4 MG CAP PO SCH ×2 (09:54→21:55)
--- NOTE | 2018-02-05 11:28 | HHI.PR ---
Subjective Remarks Patient seen in follow-up for left foot infection. Still pretty boggy and edematous with decreased drainage. To OR today per podiatry for surgical I&D Objective Vitals Vital Signs Date Time Temp Pulse Resp B/P (MAP) Pulse Ox O2 Delivery O2 Flow Rate FiO2 02/05/18 09:37 18 02/05/18 08:00 98.1 52 20 132/73 (92) 96 02/05/18 00:00 97.1 59 20 130/71 (90) 93 02/04/18 20:11 95.8 72 20 138/87 (104) 95 02/04/18 16:38 97.9 69 17 121/56 (77) 95 02/04/18 11:54 99.1 74 17 144/79 (100) 97 02/04/18 11:46 18 I/O 02/04/18 02/04/18 02/04/18 02/05/18 02/05/18 02/05/18 07:00 15:00 23:00 07:00 15:00 23:00 Intake Total 480 ml 600 ml 0 ml Output Total 300 ml Balance 480 ml 300 ml 0 ml Intake Oral 480 ml 600 ml 0 ml Output Urine Total 300 ml # Voids 6 5 0 # Bowel Movements 1 1 Result Diagram: 02/03/18 0535 02/02/18 0555 Objective Remarks Left foot dorsum is improved, decreased erythema and edema between the second and third digits GENERAL: This is a well-nourished, well-developed patient, in no apparent distress. CARDIOVASCULAR: Regular rate and rhythm without murmurs, gallops, or rubs. RESPIRATORY: Clear to auscultation. Breath sounds equal bilaterally. No wheezes , rales, or rhonchi. GASTROINTESTINAL: Abdomen soft, non-tender, nondistended. Normal active bowel sounds MUSCULOSKELETAL: Extremities without clubbing, cyanosis, or edema. NEURO: Alert & Oriented x4 to person, place, time, situation. Moves all ext x4 A/P Problem List: (1) Cellulitis of left foot ICD Code: L03.116 - Cellulitis of left lower limb Status: Acute Plan: Left second and third toe infection with interdigital tinea Continue with IV vancomycin for now and antifungal at discharge, will follow-up sensitivities to determine antibiotic therapy in this patient with penicillin allergy Cultures MSSA and group B strep Podiatry consult appreciated, for IND today Monitor clinically (2) Anemia ICD Code: D64.9 - Anemia, unspecified Plan: Iron deficiency anemia will need outpatient evaluation Continue p.o. iron, vitamin Discharge Planning Likely Thursday pending postop status and clinical improvement of infection Sosa Bedoya MD February 05, 2018 11:28
[2018-02-05] MEDS ORDERED: CHLORHEXIDINE GLUCONATE 2 % 1 PACK (2 CLOTHS) TOPICAL PRN (11:45)
[2018-02-05] MEDS ORDERED: SODIUM CHLORID 0.9% 500 ML IV PRN (11:45)
[2018-02-05] MEDS ORDERED: POVIDONE IODINE 5% (ANTISEPSIS KIT) 4 APPLICATIONS EACH NARE PRN (11:45)
[2018-02-05] MEDS ORDERED: LACTATED RINGER'S 1000 ML IV PRN (11:45)
[2018-02-05 12:00] VITALS: BP 147/78; PULSE 69; RESP 21; TEMP 98; O2SAT 98
[2018-02-05] MEDS ORDERED: MIDAZOLAM HCL 2 MG/2 ML VIAL ONE (12:10)
[2018-02-05] MEDS ORDERED: ACETAMINOPHEN 1000 MG/100 ML 100 ML IV ONE ×2 (12:10→14:00)
[2018-02-05] MEDS ORDERED: BUPIVACAINE HCL PF 0.5% 10 ML VIAL ONE (12:54)
--- NOTE | 2018-02-05 13:32 | HHI.PR ---
Immediate Post Op Note Procedure Date: February 05, 2018 Pre Op Diagnosis: Left foot abscess, 2nd digit Post Op Diagnosis: same Surgeon: Lucas Nugent [employer] Cleaner(s): scrub Procedure: Left foot incision drainage tendon debridement 2nd digit Findings: Deep abscess along the FDL 2nd digit Complications: none Specimen(s) removed: Deep wound cx Estimated blood loss: less than 10 mL Anesthesia: General Drains: None Tourniquet time (min at mmHg) 25 min 215 mmhg Patient to: PACU Patient Condition: Good Implant/Devices: SEE IMPLANT LOG (if applicable) Date/Time of Procedure: SEE SURGICAL CARE RECORD Lucas Nugent DPM February 05, 2018 13:32
--- NOTE | 2018-02-05 13:37 | HHI.FF ---
Face to Face Verification Diagnosis: (1) Cellulitis of left foot Physical Therapy Order: Evaluate and Treat, Improve ambulation Home Health Nursing Order: Medical education Wound care and dressing changes IV medication administration I have seen patient Raul De La Torre on 02/05/18. My clinical findings support the need for the requested home health care services because: Med compliance is questionable Limited ability to care for self I certify that my clinical findings support that this patient is homebound because: Unsteady gait/balance Sosa Bedoya MD February 05, 2018 13:36
--- NOTE | 2018-02-05 13:51 | MP ---
cc: Lucas Rob DPM DATE OF OPERATION: 02/05/2018 PREOPERATIVE DIAGNOSIS: Left foot abscess, likely abscess down to tendon sheath second digit. POSTOPERATIVE DIAGNOSIS: Left foot abscess, likely abscess down to tendon sheath second digit. PROCEDURE PERFORMED: Left foot incision and drainage with tendon debridement along the second digit. FINDINGS: Deep abscess along second digit FDL. COMPLICATIONS: None. ESTIMATED BLOOD LOSS: Less than 10 mL. SPECIMEN: Deep wound culture. ANESTHESIA: General. DRAINS: None. TOURNIQUET TIME: Approximately 25 minutes at a setting of 215 mmHg above the patient's left foot and calf. DISPOSITION: Return to floor once recovered in PACU to monitor wound and wound culture. JUSTIFICATION FOR PROCEDURE: A pleasant 68-year-old male with abscess, open draining; however, not much improvement has been noted. We devised a plan to move forward with incision, drainage, debridement. No guarantees given or implied regarding the outcome. The patient will likely need 2-3 weeks of antibiotics. PROCEDURE IN DETAIL: Under mild sedation, the patient was brought into the operating room and placed on the operating table in the supine position. Following the induction of general anesthesia, the left lower extremity was scrubbed, prepped and draped in the usual aseptic fashion. The foot was elevated and exsanguinated and the previously placed mid-calf tourniquet was inflated 215 mmHg. A proximal block within the mid-foot took place to help with postoperative pain. The left second digit was examined. There was noted to be fibrotic tissue at the plantar aspect of the second digit with an open draining ulcer with mild odor. Utilizing a rongeur, the fibrotic wound was debrided and immediately went down to the tendon sheath. Sharp and blunt dissection was carried down along the base of the second digit, along the tendon sheath. There is no tracking into the plantar aspect of the foot or into the interspace. Utilizing curette and rongeur, the tendon and deep content just superficial to the periosteum was debrided. The wound was flushed with copious amounts of normal saline, pulse lavage actually 2 liters. The wound was then loosely coapted utilizing nylon. The fibrotic edges were ellipsed first to hopefully allow for easier wound healing. Upon relieving the tourniquet, there was a prompt hyperemic response to all digits without any delayed capillary fill time. A well-padded, short posterior splint was applied to hopefully prevent weightbearing and prevent wound dehiscence. I am recommending physical therapy to evaluate and treat, non-weightbearing. Continue to monitor the patient's progress. Bandage change in 1-2 days before disposition for recommendation. I am unsure at this point if the patient needs IV antibiotics due to the severity of the infection involving the tendon sheath; however, it is likely. OMAR Johnson/AJAY , 01:31 PM , 01:50 PM
[2018-02-05] MEDS ORDERED: DO NOT ADM ANY ANTICOAGULANT DRUGS PRN (14:00)
[2018-02-05 16:00] VITALS: BP 155/74; PULSE 68; RESP 18; TEMP 96.9; O2SAT 97
--- NOTE | 2018-02-05 19:12 | PD.CONS ---
History of Present Illness Service Infectious disease Consult Requested By Dr Sosa Bedoya Reason for Consult Left foot abscess Primary Care Physician Burton Gar MD Diagnoses: (1) Cellulitis of left foot History of Present Illness 68 / M came in with 6 days h/o pain in the left foot - does not recall any trauma and insists he wears footwear all the time. Found to have a cellulitis with a abscess that has been drained. Cultures are growing MSSA and Strep. Patient is on IV Vancomycin Review of Systems Constitutional: DENIES: Fatigue, Fever Endocrine: DENIES: Polydipsia, Polyuria Eyes: DENIES: Eye inflammation, Eye pain Ears, nose, mouth, throat: DENIES: Nasal discharge, Throat pain Respiratory: DENIES: Cough, Wheezing, Sputum production Cardiovascular: DENIES: Palpitations, Dyspnea on Exertion Gastrointestinal: DENIES: Black stools, Bloody stools, Diarrhea, Nausea, Vomiting Genitourinary: DENIES: Urgency, Hematuria Musculoskeletal: COMPLAINS OF: Back pain, DENIES: Stiffness, Neck pain Integumentary: DENIES: Pruritus Hematologic/lymphatic: DENIES: Lymphadenopathy Neurologic: DENIES: Headache, Localized weakness, Paresthesias, Seizures Psychiatric: DENIES: Confusion Past Family Social History Allergies: Coded Allergies: penicillin G (Unverified Allergy, Mild, RASH, 05/08/17) Past Medical History Chronic back pain on chronic narcotics Urinary troubles Past Surgical History Denies Reported Medications Reviewed in the EMR, nothing new Allergies: Coded Allergies: penicillin G (Unverified Allergy, Mild, RASH, 05/08/17) Active Ordered Medications Reviewed in the EMR Family History Mother and father both from malignancies (no further details) Social History Lives with his family, denies alcohol currently, smokes a half a pack a day Reported Medications IV Vancomycin Physical Exam Vital Signs Vital Signs Date Time Temp Pulse Resp B/P (MAP) Pulse Ox O2 Delivery O2 Flow Rate FiO2 02/05/18 18:18 18 02/05/18 16:00 96.9 68 18 155/74 (101) 97 02/05/18 14:00 66 16 152/84 (106) 98 02/05/18 13:45 65 16 145/79 (101) 98 02/05/18 13:30 97.7 64 16 151/74 (99) 98 Room Air 5/18/18 12:12 18 02/05/18 12:00 98.0 69 21 147/78 (101) 98 02/05/18 08:00 98.1 52 20 132/73 (92) 96 02/05/18 00:00 97.1 59 20 130/71 (90) 93 02/04/18 20:11 95.8 72 20 138/87 (104) 95 Physical Exam GENERAL: This is a pleasant patient in no acute distress SKIN: Left foot with clean and dry dressing. HEAD: Atraumatic. Normocephalic. No temporal or scalp tenderness. EYES: Pupils equal round and reactive. Extraocular motions intact. No scleral icterus. No injection or drainage. ENT: Nose without bleeding, purulent drainage or septal hematoma. Throat without erythema, tonsillar hypertrophy or exudate. Uvula midline. Airway patent. NECK: Trachea midline. No JVD or lymphadenopathy. Supple, nontender, no meningeal signs. CARDIOVASCULAR: Regular rate and rhythm without murmurs, gallops, or rubs. RESPIRATORY: Clear to auscultation. Breath sounds equal bilaterally. No wheezes , rales, or rhonchi. GASTROINTESTINAL: Abdomen soft, non-tender, nondistended. No hepato-splenomegaly , or palpable masses. No guarding. MUSCULOSKELETAL: Left foot with clean and dry dressing. No calf tenderness. Negative Homans sign bilaterally. NEUROLOGICAL: Awake and alert. Cranial nerves II through XII intact. Motor and sensory grossly within normal limits. Five out of 5 muscle strength in all muscle groups. Normal speech. Laboratory Laboratory Tests Test 02/05/18 05:50 Vancomycin Level Trough 19.1 Date/Time Source Procedure Growth Status 02/01/18 21:20 Blood Peripheral Aerobic Blood Culture - Preliminary NO GROWTH IN 4 DAYS Resulted 02/01/18 21:20 Blood Peripheral Anaerobic Blood Culture - Preliminary NO GROWTH IN 4 DAYS Resulted 02/02/18 02:19 Urine Clean Catch Urine Culture - Final 50-100,000 CFU/ML MIXED GRAM POSITIVE... Complete 02/05/18 13:03 Abscess Foot Fungal Smear Pending Received 02/05/18 13:03 Abscess Foot Fungal Culture Pending Received Result Diagram: 02/03/18 0535 02/02/18 0555 Assessment and Plan Problem List: (1) Foot abscess, left ICD Codes: L02.612 - Cutaneous abscess of left foot Status: Acute Plan: S/p I & D Cultures with MSSA and strep. Allergy to Penicillin is rash Stop IV Vancomycin Cefazolin 2 g IV q8hrs (2) Cellulitis of left foot ICD Codes: L03.116 - Cellulitis of left lower limb Status: Acute Lydia Arellano MD February 05, 2018 19:12
[2018-02-05 20:00] VITALS: BP 133/76; PULSE 67; RESP 20; TEMP 96.8; O2SAT 96
[2018-02-05] MEDS ORDERED: VANCOMYCIN INJ 1,250 MG in SODIUM CHLOR 0.9% 250 ML INJ 250 ML IV SCH (20:00)
[2018-02-05] MEDS: ceFAZolin 2 GM PREMIX 50 ML IV SCH (21:01)
[2018-02-06] VITALS: BP 138/71; PULSE 66; RESP 20; TEMP 97.4; O2SAT 96
[2018-02-06] MEDS: MORPHINE SULFATE 30 MG CONTROLLED RELEASE TAB PO PRN ×2 (02:24→10:51)
[2018-02-06] MEDS: ALPRAZolam 1 MG TAB PO SCH ×3 (05:00→21:29)
[2018-02-06] MEDS: ceFAZolin 2 GM PREMIX 50 ML IV SCH ×3 (05:00→20:14)
[2018-02-06] MEDS: oxyCODONE/ACETAMINOPHEN 7.5 MG/325 MG TAB PO PRN ×3 (05:05→18:04)
[2018-02-06 07:50] VITALS: BP 128/78; PULSE 72; RESP 20; TEMP 96.8; O2SAT 96
[2018-02-06] MEDS: DOCUSATE SODIUM 50 MG/SENNA 8.6 MG TAB PO SCH ×2 (08:34→20:14)
[2018-02-06] MEDS: MULTIVITAMINS/MINERALS THERAPEUTIC TAB PO SCH (08:34)
[2018-02-06] MEDS: TAMSULOSIN HCL 0.4 MG CAP PO SCH ×2 (08:35→20:14)
[2018-02-06] MEDS: SODIUM CHLORIDE 0.9% FLUSH 10 ML FLUSH IV FLUSH SCH ×2 (08:35→20:14)
[2018-02-06] MEDS: BACITRACIN TOP OINT 15 GM TUBE TOPICAL SCH (10:38)
[2018-02-06 11:00] VITALS: BP 133/68; PULSE 70; RESP 18; TEMP 96.7; O2SAT 96
[2018-02-06 11:35] VITALS: RESP 18
--- NOTE | 2018-02-06 12:28 | HHI.PR ---
Subjective Remarks Patient doing well. Cultures remain negative so far. No new events overnight. Pain is well controlled Objective Vitals Vital Signs Date Time Temp Pulse Resp B/P (MAP) Pulse Ox O2 Delivery O2 Flow Rate FiO2 02/06/18 11:35 18 02/06/18 11:00 96.7 70 18 133/68 (89) 96 02/06/18 07:50 96.8 72 20 128/78 (95) 96 02/06/18 00:00 97.4 66 20 138/71 (93) 96 02/05/18 20:00 96.8 67 20 133/76 (95) 96 02/05/18 18:18 18 02/05/18 16:00 96.9 68 18 155/74 (101) 97 02/05/18 14:00 66 16 152/84 (106) 98 02/05/18 13:45 65 16 145/79 (101) 98 02/05/18 13:30 97.7 64 16 151/74 (99) 98 Room Air I/O 02/05/18 02/05/18 02/05/18 02/06/18 02/06/18 02/06/18 07:00 15:00 23:00 07:00 15:00 23:00 Intake Total 400 ml 480 ml 440 ml 120 ml Output Total 10 ml 1000 ml 600 ml Balance 390 ml -520 ml -160 ml 120 ml Intake Oral 0 ml 480 ml 240 ml 120 ml IV Total 400 ml 200 ml Output Urine Total 0 ml 1000 ml 600 ml Estimated Blood Loss 10 ml # Voids 0 1 Result Diagram: 02/03/18 0535 02/02/18 0555 Objective Remarks Left foot dorsum is wrapped postoperatively GENERAL: This is a well-nourished, well-developed patient, in no apparent distress. CARDIOVASCULAR: Regular rate and rhythm without murmurs, gallops, or rubs. RESPIRATORY: Clear to auscultation. Breath sounds equal bilaterally. No wheezes , rales, or rhonchi. GASTROINTESTINAL: Abdomen soft, non-tender, nondistended. Normal active bowel sounds MUSCULOSKELETAL: Extremities without clubbing, cyanosis, or edema. NEURO: Alert & Oriented x4 to person, place, time, situation. Moves all ext x4 A/P Problem List: (1) Cellulitis of left foot ICD Code: L03.116 - Cellulitis of left lower limb Status: Acute Plan: Left second and third toe infection with interdigital tinea Continue with IV cefazolin Cultures MSSA and group B strep Podiatry consult appreciated, postop day 1 status post I&D ID consult appreciated Monitor clinically (2) Anemia ICD Code: D64.9 - Anemia, unspecified Plan: Iron deficiency anemia will need outpatient evaluation Continue p.o. iron, vitamin Discharge Planning Likely Thursday pending postop status and clinical improvement of infection Sosa Bedoya MD February 06, 2018 12:28
--- NOTE | 2018-02-06 14:05 | EKG ---
Date Performed: 02/05/2018 Time Performed: 11:47:31 PTAGE: 68 years EKG: SINUS BRADYCARDIA WITH SHORT CT INTERVAL BORDERLINE ECG PREVIOUS TRACING : 01/10/2015 23.47 DOCTOR: Frank Acosta Interpretating Date/Time 02/06/2018 14:00:52
[2018-02-06 15:00] VITALS: BP 145/67; PULSE 70; RESP 18; TEMP 96.7; O2SAT 98
[2018-02-06] MEDS ORDERED: WALKER WHEELS/F1 MIS (15:09)
[2018-02-06 20:13] VITALS: BP 105/75; PULSE 75; RESP 20; TEMP 97.1; O2SAT 94
[2018-02-07 00:10] VITALS: BP 128/80; PULSE 65; RESP 20; TEMP 96.3; O2SAT 96
[2018-02-07] MEDS: ALPRAZolam 1 MG TAB PO SCH ×3 (04:42→21:23)
[2018-02-07] MEDS: ceFAZolin 2 GM PREMIX 50 ML IV SCH ×3 (04:43→21:23)
[2018-02-07] MEDS ORDERED: VANCOMYCIN TROUGH ONE (07:45)
[2018-02-07] MEDS: DOCUSATE SODIUM 50 MG/SENNA 8.6 MG TAB PO SCH ×2 (08:05→21:23)
[2018-02-07] MEDS: MULTIVITAMINS/MINERALS THERAPEUTIC TAB PO SCH (08:05)
[2018-02-07] MEDS: TAMSULOSIN HCL 0.4 MG CAP PO SCH ×2 (08:06→21:23)
[2018-02-07] MEDS: SODIUM CHLORIDE 0.9% FLUSH 10 ML FLUSH IV FLUSH SCH ×2 (08:06→21:00)
[2018-02-07] MEDS: oxyCODONE/ACETAMINOPHEN 7.5 MG/325 MG TAB PO PRN ×3 (08:09→21:23)
[2018-02-07 08:15] LABS: CREATININE 1.1 MG/DL (0.60-1.30)
[2018-02-07 08:35] VITALS: BP 142/85; PULSE 68; RESP 18; TEMP 96.8; O2SAT 98
[2018-02-07] MEDS: BACITRACIN TOP OINT 15 GM TUBE TOPICAL SCH (09:00)
--- NOTE | 2018-02-07 10:12 | HHI.PR ---
Subjective Remarks Follow up left lower cellulitis. Patient seen and examined, lying in bed comfortably. in NAD. Awaiting podiatry to change dressing today. VSS. Afebrile. Objective Vitals Vital Signs Date Time Temp Pulse Resp B/P (MAP) Pulse Ox O2 Delivery O2 Flow Rate FiO2 02/07/18 08:35 96.8 68 18 142/85 (104) 98 02/07/18 00:10 96.3 65 20 128/80 (96) 96 02/06/18 20:13 97.1 75 20 105/75 (85) 94 02/06/18 19:20 20 02/06/18 15:00 96.7 70 18 145/67 (93) 98 02/06/18 11:35 18 02/06/18 11:00 96.7 70 18 133/68 (89) 96 I/O 02/06/18 02/06/18 02/06/18 02/07/18 02/07/18 02/07/18 07:00 15:00 23:00 07:00 15:00 23:00 Intake Total 440 ml 120 ml 380 ml 50 ml Output Total 600 ml 300 ml 400 ml Balance -160 ml 120 ml 80 ml -350 ml Intake Oral 240 ml 120 ml 360 ml IV Total 200 ml 20 ml 50 ml Output Urine Total 600 ml 300 ml 400 ml # Voids 1 2 Result Diagram: 02/03/18 0535 02/07/18 0743 Imaging Last Impressions Foot MRI 02/02/18 0000 Signed Impressions: Service Date/Time: Friday, February 02, 2018 15:53 - CONCLUSION: Soft tissue wound and infection involving the second and third toes without definite evidence of underlying osteomyelitis. Martínez Doe MD Foot X-Ray 02/01/182116 Signed Impressions: Service Date/Time: Thursday, February 01, 2018 21:40 - CONCLUSION: No acute bony findings Martínez Doe MD Chest X-Ray 02/01/182116 Signed Impressions: Service Date/Time: Thursday, February 01, 2018 21:40 - CONCLUSION: No acute disease. Martínez Doe MD Objective Remarks GENERAL: Well-developed, well-nourished patient in [facility]. SKIN: Warm and dry. No rash. HEAD: Normocephalic. Atraumatic. EYES: Pupils equal and round. No scleral icterus. No injection or drainage. ENT: No nasal bleeding or discharge. Mucous membranes pink and moist. NECK: Supple. Trachea midline. CARDIOVASCULAR: Regular rate and rhythm. S1, S2 noted. No murmur appreciated. RESPIRATORY: No accessory muscle use. Clear to auscultation. Breath sounds equal bilaterally. GASTROINTESTINAL: Abdomen soft, non-tender, nondistended. Normoactive bowel sounds x4. MUSCULOSKELETAL: No obvious deformities. Extremities without clubbing, cyanosis , or edema. NEUROLOGICAL: Awake and alert. No obvious cranial nerve deficits. Motor grossly within normal limits. 5/5 muscle strength in bilateral upper and lower extremities. Normal speech. PSYCHIATRIC: Appropriate mood and affect; insight and judgment normal. A/P Problem List: (1) Cellulitis of left foot ICD Code: L03.116 - Cellulitis of left lower limb Status: Acute Plan: Left second and third toe infection with interdigital tinea Continue with IV cefazolin Cultures MSSA and group B strep Podiatry consult appreciated, postop day 2 status post I&D ID consult appreciated Monitor clinically (2) Anemia ICD Code: D64.9 - Anemia, unspecified Plan: Iron deficiency anemia will need outpatient evaluation Continue p.o. iron, vitamin Tori Nichols February 07, 2018 10:12
[2018-02-07 13:18] VITALS: BP 140/79; PULSE 65; RESP 18; TEMP 97.4; O2SAT 96
[2018-02-07 15:16] LABS: VANCOMYCIN TROUGH 4.7 MCG/ML (5.0-10.0)
[2018-02-07 15:30] VITALS: RESP 18
[2018-02-07 16:39] VITALS: BP 127/72; PULSE 67; RESP 17; TEMP 97.2; O2SAT 95
[2018-02-07 20:00] VITALS: BP 123/68; PULSE 76; RESP 18; TEMP 96.7; O2SAT 96
[2018-02-08] VITALS: BP 125/72; PULSE 62; RESP 18; TEMP 97.6; O2SAT 97
[2018-02-08] MEDS: ALPRAZolam 1 MG TAB PO SCH ×2 (05:12→14:13)
[2018-02-08] MEDS: ceFAZolin 2 GM PREMIX 50 ML IV SCH ×2 (05:13→12:01)
--- NOTE | 2018-02-08 07:47 | HHI.FF ---
Face to Face Verification Diagnosis: (1) Foot abscess, left (2) Cellulitis of left foot Home Health Nursing Order: Wound care and dressing changes Instructions: Betadine swab to wound 4 x 4's, cast padding/Soft-Roll reapply splint every 3 days I have seen patient Raul De La Torre on 02/08/18. My clinical findings support the need for the requested home health care services because: Limited ability to care for self High risk of falls I certify that my clinical findings support that this patient is homebound because: [id number] bed/chair Lucas Rob DPM February 08, 2018 07:47
--- NOTE | 2018-02-08 07:49 | PD.POD ---
Subjective Pain score: 3 Remarks Doing good no events over the weekend Past Med/Surg/Social History Social History Smoking Status: Light Tobacco Smoker Objective Vital Signs Vital Signs Date Time Temp Pulse Resp B/P (MAP) Pulse Ox O2 Delivery O2 Flow Rate FiO2 02/08/18 00:00 97.6 62 18 125/72 (89) 97 02/07/18 20:00 96.7 76 18 123/68 (86) 96 02/07/18 16:39 97.2 67 17 127/72 (90) 95 02/07/18 15:30 18 02/07/18 13:18 97.4 65 18 140/79 (99) 96 02/07/18 08:35 96.8 68 18 142/85 (104) 98 Coded Allergies: penicillin G (Unverified Allergy, Mild, RASH, 05/08/17) Medications and IVs Administered Medications Medications (Trade) Dose Ordered Sig/Trace Route PRN Reason Start Time Stop Time Status Last Admin Dose Admin Sodium Chloride (NS Flush) 2 ml UNSCH PRN IV FLUSH FLUSH AFTER USING IV ACCESS 02/01/18 23:15 02/02/18 03:12 Sodium Chloride (NS Flush) 2 ml BID IV FLUSH 02/02/18 09:00 02/07/18 08:06 Senna/Docusate Sodium (Natalie-Colace) 1 tab BID PO 02/02/18 09:00 02/07/18 21:23 Bacitracin (Baciguent Oint) 1 applic DAILY TOPICAL 02/02/18 10:00 02/04/18 10:31 Oxycodone/ Acetaminophen (Percocet 7.5-325 Mg) 1 tab Q6HR PRN PO pain 02/02/18 09:45 02/07/18 21:23 Alprazolam (Xanax) 1 mg Q8HR PO 02/02/18 14:00 02/08/18 05:12 Morphine Sulfate (Oramorph Sr) 30 mg Q8H PRN PO pain 02/02/18 11:45 02/06/18 10:51 Tamsulosin HCl (Flomax) 0.4 mg BID PO 02/02/18 21:00 02/07/18 21:23 Multivitamins/ Minerals Therapeutic (Theragran M Tab) 1 tab DAILY PO 02/03/18 13:11 02/07/18 08:05 Lactated Ringer's 1,000 ml @ 30 mls/hr Q24H PRN IV SEE LABEL COMMENTS 02/05/18 11:45 02/08/18 11:44 02/05/18 11:45 Cefazolin Sodium/ Dextrose 50 ml @ 100 mls/hr Q8H IV 02/05/18 20:00 02/08/18 05:13 Other Results Laboratory Tests Test 02/07/18 07:43 Creatinine 1.10 MG/DL Estimat Glomerular Filtration Rate 66 ML/MIN Microbiology Date/Time Source Procedure Growth Status 02/05/18 13:03 Abscess Foot Fungal Smear - Final NO FUNGAL ELEMENTS SEEN. Resulted 02/05/18 13:03 Abscess Foot Fungal Culture Pending Resulted 02/05/18 13:03 Abscess Foot Gram Stain - Final Complete 02/05/18 13:03 Wound Culture - Final Staphylococcus Aureus Complete 02/05/18 13:03 Abscess Foot Acid Fast Stain - Final NO ACID FAST BACILLI SEEN Resulted 02/05/18 13:03 Abscess Foot Mycobacterial Culture Pending Resulted Exam-Podiatry Remarks Left lower extremity examined: Plantar incision along the second MPJ second digit base well coapted mild swelling no obvious significant redness no drainage noted good capillary fill time to the digit sensation decreased to light touch splint intact. Assessment & Plan A/P Left second digit cellulitis abscess. Postop day 3 Doing well recommend IV antibiotics minimum 1 week bandage changed home health care orders and [id number] completed, reviewed case with medicine team follow- up outpatient 1 week clear to discharge once antibiotics and home health care arranged Lucas Rob DPM February 08, 2018 07:49
[2018-02-08 08:00] VITALS: BP 128/80; PULSE 69; RESP 20; TEMP 97.6; O2SAT 96
[2018-02-08] MEDS: TAMSULOSIN HCL 0.4 MG CAP PO SCH (08:17)
[2018-02-08] MEDS: DOCUSATE SODIUM 50 MG/SENNA 8.6 MG TAB PO SCH (08:18)
[2018-02-08] MEDS: oxyCODONE/ACETAMINOPHEN 7.5 MG/325 MG TAB PO PRN ×2 (08:18→18:06)
[2018-02-08] MEDS: MULTIVITAMINS/MINERALS THERAPEUTIC TAB PO SCH (08:18)
[2018-02-08] MEDS: SODIUM CHLORIDE 0.9% FLUSH 10 ML FLUSH IV FLUSH SCH (09:00)
[2018-02-08] MEDS: BACITRACIN TOP OINT 15 GM TUBE TOPICAL SCH (09:00)
--- NOTE | 2018-02-08 11:48 | HHI.DS ---
Discharge Summary Admission Date February 02, 2018 at 10:21 Discharge Date: February 08, 2018 Admitting Diagnosis Left foot cellulitis (1) Cellulitis of left foot ICD Code: L03.116 - Cellulitis of left lower limb Status: Acute (2) Anemia ICD Code: D64.9 - Anemia, unspecified Procedures I&D left foot, podiatry Brief History - From Admission Patient is a 68-year-old gentleman with minimal past medical history who reports 6 days discomfort and pain to the left foot. He notes there is redness and swelling on the second and third toe interdigital space and difficulty with putting pressure on the foot. Pain is 10 out of 10 despite his home regimen of morphine and Percocet which he takes for back pain. Pain was improved with IV Dilaudid. Patient has not had any fevers or chills. Patient did not have any previous antibiotics. The foot is quite boggy and swelling has been severe although improved with elevation overnight. X-rays were completed and there does not appear to be any foreign body. Patient reports no previous surgical treatment of the foot and ankle. Patient been admitted for IV antibiotics and for further evaluation and treatment CBC/BMP: 02/07/18 0743 Significant Findings Laboratory Tests Test 02/07/18 07:43 Estimat Glomerular Filtration Rate 66 ML/MIN (>89) Vancomycin Level Trough 4.7 MCG/ML (5.0-10.0) Imaging Last Impressions Foot MRI 02/02/18 0000 Signed Impressions: Service Date/Time: Friday, February 02, 2018 15:53 - CONCLUSION: Soft tissue wound and infection involving the second and third toes without definite evidence of underlying osteomyelitis. Martínez Doe MD Foot X-Ray 02/01/182116 Signed Impressions: Service Date/Time: Thursday, February 01, 2018 21:40 - CONCLUSION: No acute bony findings Martínez Doe MD Chest X-Ray 02/01/182116 Signed Impressions: Service Date/Time: Thursday, February 01, 2018 21:40 - CONCLUSION: No acute disease. Martínez Doe MD PE at Discharge GENERAL: Well-developed, well-nourished patient in NAD. SKIN: Warm and dry. No rash. HEAD: Normocephalic. Atraumatic. EYES: Pupils equal and round. No scleral icterus. No injection or drainage. ENT: No nasal bleeding or discharge. Mucous membranes pink and moist. NECK: Supple. Trachea midline. CARDIOVASCULAR: Regular rate and rhythm. S1, S2 noted. No murmur appreciated. RESPIRATORY: No accessory muscle use. Clear to auscultation. Breath sounds equal bilaterally. GASTROINTESTINAL: Abdomen soft, non-tender, nondistended. Normoactive bowel sounds x4. MUSCULOSKELETAL: No obvious deformities. Extremities without clubbing, cyanosis , or edema. NEUROLOGICAL: Awake and alert. No obvious cranial nerve deficits. Motor grossly within normal limits. 5/5 muscle strength in bilateral upper and lower extremities. Normal speech. PSYCHIATRIC: Appropriate mood and affect; insight and judgment normal. Pt update on day of discharge Patient doing well today. Podiatry notes noted. Awaiting IV access for home IV antibiotic therapy Hospital Course This patient is a very pleasant 68-year-old man with a left foot cellulitis which had a deep abscess that required I&D by podiatry. Cultures were positive for group B strep and staph aureus sensitive to methicillin. Patient did well IV antibiotics. He was also seen by the infectious disease team. Home antibiotics are recommended. Pt Condition on Discharge: Good Discharge Disposition: Disch w/ Home Health Serv Discharge Time: <= 30 minutes Discharge Instructions Follow up Referrals: Podiatry - 1 Week with Lucas Rob DPM New Medications: Acetaminophen (Tylenol) 325 Mg Tab 650 MG PO Q4H PRN for pain, #21 TAB 0 Refills Naproxen (Naprosyn) 500 Mg Tab 500 MG PO BID for Pain Management, #60 TAB 0 Refills Walker with Front Wheels (Walker with Front Wheels) 1 Mis Mis EA .XX DIRECTED, #1 0 Refills Changed Medications: Tamsulosin (Tamsulosin) 0.4 Mg Cap 0.4 MG PO BID for Manage Prostate Problems, #30 CAP 0 Refills (Medication details modified) * Continued Medications: Alprazolam (Xanax) 1 Mg Tab 1 MG PO Q8H, TAB 0 Refills Morphine ER (Morphine ER) 30 Mg Tab 30 MG PO Q8H PRN for pain, TAB 0 Refills Oxycodone-Acetaminophen (Percocet) 10-325 mg Tab 1 TAB PO Q6H PRN for PAIN, TAB 0 Refills Additional Information kinga rondon with [facility] Sosa Bedoya MD February 08, 2018 11:48
[2018-02-08 12:00] VITALS: BP 164/70; PULSE 99; RESP 20; TEMP 97.2; O2SAT 97
[2018-02-08 12:16] VITALS: BP 132/84; PULSE 77; RESP 20; TEMP 96.7; O2SAT 97
--- NOTE | 2018-02-08 14:57 | HHI.FF ---
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 [] May leave port accessed during therapy. [] May leave peripheral site accessed for duration of therapy. [x] If patient has SOB or respiratory distress, check oxygen saturation. If less than 90% or clinical signs of respiratory distress, administer oxygen at 2 L/min. via nasal cannula and notify physician. [x] Anaphylaxis/Reaction orders: * Stop infusion. * Keep IV line open with saline flush. * Notify physician. * Monitor vital signs every 15 minutes until symptoms resolve. * Check Oxygen saturation; Oxygen at 2 L/min. via nasal cannula if less than 90% or clinical signs of respiratory distress. * Administer diphenhydramine (Benadryl) 25 mg IV STAT, (unless patient has received as pre-med). May repeat once, if necessary. * Solu-Cortef 250 mg IVP over 30-60 seconds, use 100 mg vials for each dissolution. * Epinephrine (1mg/1 ml) 0.3 mg subcutaneously or IVP now with any signs of respiratory distress. * Check with physician for new additional pre-med orders if patient is re- challenged or re-treated. [x] May remove PICC line when treatment complete, after confirming with Physician. [x] If the patient is admitted to the hospital, the ED, or transferred via [facility] , complete transfer form including medication reconciliation order sheet. Laboratory Tests Weekly Labs: CBC w/diff, CMP, CRP, SED Rate Additional Information Patient to follow up with Dr Arellano [phone] in 7 -10 days Lydia Arellano MD February 08, 2018 14:57
[2018-02-08 16:00] VITALS: BP 125/79; PULSE 82; RESP 19; TEMP 97; O2SAT 95
[2018-02-08] MEDS ORDERED: TAMS0.4C4 PO (17:47)
[2018-02-08] MEDS ORDERED: NAPR500 PO (17:52)
[2018-02-08] MEDS ORDERED: TYLE325T PO (17:52)
== END 2018-02-08 18:38 | disposition home health service (06) | DRG 982 ==
LOC: PHED 20:58 → PHEDA 23:17 → PH3A 02-02 00:16 → OBSVTOIN 02-02 10:21
PROVIDERS: ADMIT Hospitalist; ATTEND Hospitalist
PROC: 0LBW0ZZ Excision of Left Foot Tendon, Open Approach (ICD-10-PCS; principal; 2018-02-05 12:36)
DX: L03.116 Cellulitis of left lower limb (principal); L02.612 Cutaneous abscess of left foot; F17.210 Nicotine dependence, cigarettes, uncomplicated; D50.9 Iron deficiency anemia, unspecified; B35.3 Tinea pedis; G89.29 Other chronic pain; M54.5 Low back pain; M79.606 Pain in leg, unspecified; R60.0 Localized edema; A49.01 Methicillin susceptible Staphylococcus aureus infection, unspecified site; Z79.891 Long term (current) use of opiate analgesic; Z88.0 Allergy status to penicillin
CPT/HCPCS: 71045; 73630; 73720; 80048; 80053; 80202; 81001; 82565; 82607; 83540; 83550; 85025; 85610; 85730; 86140; 86403; 87015; 87040; 87070; 87086; 87102; 87116; 87147; 87186; 87205; 87206; 90471; 90732; 93005; A9579; G0009; G8987-GP; G8988-GP; J0131; J0690; J1170; J2250; J3370; J7030; J7040; J7050; J7120